=== PATIENT | female | born 1940 | race Caucasian/White ===

== ENCOUNTER 2019-05-15 11:34 | Emergency (ER) | payer MEDICARE, OTHER, SELFPAY ==
[2019-05-15 11:36] VITALS: BP 161/86; PULSE 83; RESP 16; TEMP 36.8; O2SAT 97; BMI 27.1
--- NOTE | 2019-05-15 12:20 | CT_ITS ---
STUDY: CT ABDOMEN AND PELVIS WITHOUT CONTRAST REASON FOR EXAM: Female, 78 years old. Right flank pain, hematuria, recurrent UTI x 3 months. No prior surgery.. RADIATION DOSAGE (If Supplied By Facility): CTDIvol = ( 19.58 ) mGy, DLP = ( 900.20 ) mGycm TECHNIQUE: Transaxial images were obtained from the dome of the diaphragm to the symphysis pubis without oral contrast, and without intravenous contrast. Sagittal and coronal images were reconstructed. Individualized dose optimization techniques were used for this CT. COMPARISON: None. FINDINGS: The visualized lung bases are unremarkable. The visualized portions of the heart are within normal limits. Normal liver. Normal gallbladder and extrahepatic biliary system. Normal spleen. Normal pancreas. Normal bilateral adrenal glands. Normal right kidney. Normal left kidney. Normal visualized stomach. Normal small intestine. There are multiple colonic diverticula consistent with diverticulosis. The appendix is visualized and appears normal. There is diffuse atherosclerotic calcification of the abdominal aorta, without a demonstrated aneurysm. Normal inferior vena cava. Normal retroperitoneum. Normal urinary bladder. There is a calcification at the fundus of the uterus, likely secondary to a small fibroid Normal abdominal wall. There are diffuse degenerative changes of the visualized lumbar spine. CT/Abdomen/Pelvis without Cont IMPRESSION: No acute intra-abdominal abnormalities. Mild liver steatosis. Mild aortoiliac atherosclerosis. Uterine fibroid. Electronically Signed: Christal Whiteside MD at 12:59 EDT Tel , Service support ,
[2019-05-15 12:35] LABS: Bacteria 0 SEEN /hpf (None Seen); Mucous, Urine 0 SEEN /hpf (<or=2+); Red Blood Cells-Urine 0 SEEN /hpf (0-5); White Blood Cells 0 SEEN /hpf (0-5)
[2019-05-15 12:37] LABS: Color, Urine Yellow (Yellow); Glucose, Dipstick Normal (Normal); Ketone-Dipstick Negative (Negative); Leukocyte Esterase-Dipstick 25 /ul (Negative); Nitrite-Dipstick Negative (Negative); Occult Blood-Urine 10 /ul (Negative); Protein-Dipstick Negative (Negative); Urine Bilirubin Dipstick Negative (Negative); Urine Clarity Clear (Clear); Urine Urobilinogen Normal (Normal)
[2019-05-15 12:37] LABS: Absolute Lymphocyte Count 2.18 X10^3/uL (0.83-4.51); Basophil# 0.06 X10^3/uL; Basophil% 0.8 % (0-1); Eosinophil# 0.27 X10^3/uL; Eosinophils% 3.4 % (0-5); Hematocrit 44.7 % (37-47); Hemoglobin 14.4 g/dL (12.0-15.0); Lymphocyte # 2.18 X10^3/ul (4.0); Lymphocyte % 27.3 % (19-41); Mean Corp Hgb Conc 32.2 g/dL (32-36); Mean Corpuscular Hgb 27.7 pg (27.0-32.0); Mean Corpuscular Volume 86.1 fL (81-99); Mean Platelet Vol. 8.9 fl (6.2-12.0); Monocyte# 0.49 X10^3/uL; Monocyte% 6.1 % (0-10); NRBC Flagged by Analyzer 0 % (0-5); Neutrophil # 4.98 X10^3/uL (2.7-7.7); Neutrophil % 62.1 % (47-70); Platelet Count 267 K/mm3 (150-450); RBC Distribution Width CV 13.4 % (11.6-14.6); RBC Distribution Width SD 41.8 fl (35.1-43.9); Red Blood Count 5.19 M/mm3 (4.2-5.4)
--- NOTE | 2019-05-15 12:37 | ED.DCSUM_ITS ---
- ER Visit Summary Date of Service: 05/15/19 Chief Complaint: Dysuria and right upper quadrant pain. History of Present Illness: The patient is a 78 F who presents with dysuria and hematuria that is been getting progressively worse over the past 5 days. Patient noticed a small amount of blood in her urine. Patient states she has some pressure in the suprapubic area but also a pulling sensation in her right upper quadrant. Patient states she recently lifted her and has been having some pain in her right upper quadrant since that time. Patient is currently on Macrobid for presumptive urinary tract infections. Patient states she frequently gets urinary tract infections. Daughter states the patient has been confused at times recently. Patient denies any fevers but admits to subjective chills. Patient denies any nausea or vomiting. Patient denies any back pain. Physical Examination: Vital signs are stable. Patient is afebrile. Patient is in no acute distress. Oral mucosa is pink and moist. Neck is supple. Trachea is midline. There is no JVD noted. Heart was regular rate and rhythm. Lungs are clear and equal bilaterally. Abdomen is soft. Bowel sounds are normal. There is tenderness along the right costal margin. There is no right upper quadrant abdominal tenderness. There is some mild suprapubic tenderness. There is no rebound or guarding noted. Cranial nerves II through XII are intact. There are no focal motor or sensory deficits noted. Patient is awake, alert, and oriented x3. Patient answers questions appropriately. Test Results: CBC, basic metabolic profile, and urinalysis were obtained and were all within normal limits. CT scan of the abdomen pelvis was obtained. There is no acute abnormality noted. There is uterine fibroid noted. Emergency Department Course and Treatment: Patient was advised of her lab and CT results. Patient was instructed to continue her medications as previously prescribed. Patient was instructed to take Tylenol as needed for her right upper quadrant pain. Patient was advised that this is most likely costochondritis of the costal margin. Patient was instructed to follow-up with her primary care physician in 5 to 7 days. Patient and her family understood and were agreeable with the plan. All questions were answered. Disposition: Discharge home Impression: 1. Abdominal pain 2. Costochondritis This note was generated with [employer] software. It may contain incorrect words, spelling, and punctuation that were not noted in review of the chart prior to signing ED Disposition - Plan for ED Patient: Disposition: Home or Assisted Living Diagnosis: Lower abdominal pain of unknown etiology, Costochondritis Instructions: ABDOMINAL PAIN, Unknown Cause, (Female), CHEST WALL PAIN, Costochondritis Referrals: Jamison Saleem MD [STAFF PHYSICIAN] - 5-7 Days
[2019-05-15 12:44] LABS: Squamous Epithelial Cells - UA 0-5 SEEN /hpf (5-10)
[2019-05-15 12:51] LABS: Anion Gap 2 (5-15); BUN 13 mg/dL (7-18); BUN/Creat Ratio 13.7 RATIO (10-20); Calcium,Total 9.3 mg/dL (8.5-10.1); Chloride 105 mmol/L (98-107); Creatinine, Serum 0.95 mg/dL (0.55-1.02); EST Glomerular Filtration Rate 61 mL/min (>60); Est Glom Filt Rate - Afr Amer 74 mL/min (>60); Estimated Creatinine Clearance 48.23 ml/min; Glucose 95 mg/dL (74-106); Lipase 77 U/L (73-393); Potassium 4.3 mmol/L (3.5-5.1); Sodium Level 139 mmol/L (136-145)
[2019-05-15 13:33] VITALS: BP 155/69; PULSE 80; RESP 17; O2SAT 94
[2019-05-15 13:41] VITALS: BP 159/70; PULSE 85; RESP 16; O2SAT 96
== END 2019-05-15 13:43 | disposition home or self-care (01) ==
PROVIDERS: Emergency Provider Emergency Medicine; Family Provider Family Medicine; PCP Family Medicine
DX: R10.11 Right upper quadrant pain (principal); M94.0 Chondrocostal junction syndrome [Tietze]; D25.9 Leiomyoma of uterus, unspecified; N39.0 Urinary tract infection, site not specified; R31.9 Hematuria, unspecified; R51 Headache
CPT/HCPCS: 74176; 80048; 81001; 83690; 85025; 99283; A4216

== ENCOUNTER 2019-07-02 14:25 | Emergency (ER) | payer MEDICARE, OTHER, SELFPAY ==
[2019-07-02 14:26] VITALS: BP 211/81; PULSE 73; RESP 16; TEMP 36.3; O2SAT 97; BMI 34.4
--- NOTE | 2019-07-02 15:07 | MRI_ITS ---
STUDY: MRI BRAIN WITHOUT CONTRAST REASON FOR EXAM: Female, 78 years old. Headache and visual disturbance TECHNIQUE: Study was limited due to patient becoming claustrophobia during the exam.. COMPARISON: None. FINDINGS: Examination was limited consisting of sagittal T1 images and diffusion weighted imaging sequences in the axial projection due to patient claustrophobia. There does appear to be mild age-appropriate cerebral atrophy. There is no evidence for acute infarct . There is no mass or evidence for obstructive hydrocephalus MRI/Brain without Contrast IMPRESSION: Limited study of the brain without evidence for acute infarct, mass or obstructive hydrocephalus Electronically Signed: Epifanio Callaway MD at 19:12 EST , Service support ,
--- NOTE | 2019-07-02 15:08 | EKG12_ITS ---
Test Reason : HTN/PALPS Blood Pressure : / mmHG Vent. Rate : 077 BPM Atrial Rate : 077 BPM P-R Int : 140 ms QRS Dur : 088 ms QT Int : 412 ms P-R-T Axes : 040 -39 014 degrees QTc Int : 466 ms Normal sinus rhythm Left axis deviation Minimal voltage criteria for LVH, may be normal variant Abnormal ECG Confirmed by VENICE MACKAY, DAVE ([id number]), digital editor SUSY WINTER ([id number]) on 07/06/2019 1:50:53 PM Referred By: BHARATI/LYNN Confirmed By:DAVE MILLARD MD
--- NOTE | 2019-07-02 15:13 | ED.VIS.GEN ---
History of Present Illness Chief Complaint: Hypertension Detail of Chief Complaint: By ocular blurred vision, scintillating scotoma, headache trouble speech Informant: Patient, Family Onset: Weeks Context: Sudden Onset Timing: Intermittent Quality: Varies Location: Headache, ocular and speech Current Severity: Presently absent Maximum Severity: Mild Worsened by: Possibly elevated blood pressure Relieved by: Nothing Associated Symptoms: Read HPI Narrative: Patient is a 78-year-old woman who [place] because of elevated blood pressure of 221 systolic. She was seen by her primary care provider 1 month ago and was told her blood pressure was normal. She is presently on no medication. She reports of the past 3 weeks she has had episodes of difficulty with speech and one episode of trouble breathing and inability to talk. Today while at [employer] office she had elevated blood pressure 196 initially. She then developed by ocular blurred vision. The blurred vision resolved. She then developed headache with what since it is described as scintillating scotoma. The head pain was frontal and bitemporal with unusual sensation in patient's neck. Blood pressure at that time was 221. She had no other symptoms. Patient states after arrival in the emergency department she developed palpitations. She felt like her heart was flip flopping in her chest. She had no associated symptoms or any return of headache, visual disturbance or problems with speech. She was seen news [facility] because of postmenopausal bleeding. A polyp was noted and excised. Endometrial biopsy was obtained as well. She denies fever, chills or night sweats. Denies weight gain or weight loss. Denies bone pain. Prior similar symptoms: No Recent Illness/Hospitalization: No - Past Medical History (1) No significant past medical history Status: Acute Past Medical History - Allergies and Home Meds Allergies/Adverse Reactions: Allergies Iodinated Contrast Media [CONTRASTS] Allergy (Verified 07/02/19 14:29) Other nitrofurantoin [From Macrodantin] Allergy (Verified 07/02/19 14:29) Hives Penicillins Allergy (Verified 07/02/19 14:29) Unknown Primary Care Physician: Tony Gonzáles MD [Primary Care Provider] - Past Medical History: None Surgical History: - - Scribed in [facility] Lives: Spouse/ Significant Other Smoking Status: Never smoker Alcohol: None Drugs: None Review of Systems General: Denies: Chills, Fever, Sweats Eyes: Reports: Visual changes - bilaterally, Blurred Vision - bilaterally, - - Scintillating scotoma. Denies: Diplopia ENT: Denies: Rhinorrhea, Sore throat Cardiovascular: Denies: Chest pain, Palpitations Respiratory: Denies: Dyspnea, Cough, Dyspnea on exertion Gastrointestinal: Denies: Abdominal pain, Nausea, Vomiting, Diarrhea, Melena, Hematochezia Genitourinary: Denies: Dysuria, Hematuria, Frequency Musculoskeletal: Denies: Back pain, Extremity Pain Skin: Denies: Rash, Wounds Neurological: Reports: Headache - Described in HPI Psych: Reports: - - Should not is the caregiver for her . He is not doing well. She feels slightly stressed and has had insomnia.. Denies: Depression, Anxiety Physical Exam Vital Signs/Narrative: Vital Signs Temp Pulse Resp BP Pulse Ox 07/02/19 14:26 97.4 F L 73 16 211/81 H 97 Inital Vital Signs reviewed: Yes General: Well nourished, Well developed, No Acute Distress Head: Normocephalic, Atraumatic Eyes: Perrl, EOMI, - - Scopic exam reveals normal cup-to-disc ratio. There is no papilledema. There is no evidence of hemorrhage.. Negative for: Pale conjunctiva, Scleral icterus ENT: Moist mucous membranes, No rhinorrhea Neck: Supple, Nontender, No lymphadenopathy, No JVD Cardiovascular: Regular rate, Regular rhythm, No murmurs Respiratory: No distress, CTA bilaterally, Chest nontender Abdomen: Soft, Nontender, Nondistended, Normal bowel sounds Back: Nontender, Normal Inspection Extremities: Nontender, No edema Skin: Normal color, No rash Neurological: Alert, Oriented x3, Cranial nerves II-XII grossly intact, Normal Strength, Normal Sensation, Normal DTR - There is no clonus or Babinski sign., Normal Gait, - - Jessie testing was normal. Psychological: Normal affect, Normal Mood Diagnostic/Tx/Re-eval Impressions Brain MRI 07/02/19 15:07 IMPRESSION: Limited study of the brain without evidence for acute infarct, mass or obstructive hydrocephalus Electronically Signed: Epifanio Callaway MD at 19:12 EST , Service support , 07/02/19 15:07 Brain without Contrast [MRI] Stat Laboratory Results 07/02/19 07/02/19 15:13 15:13 WBC 6.6 RBC 4.96 Hgb 13.9 Hct 42.0 MCV 84.7 MCH 28.0 MCHC 33.1 RDW Std Deviation 42.5 RDW Coeff of Holden 13.7 Plt Count 228 MPV 9.1 Immature Gran % (Auto) 0.200 Neut % (Auto) 59.1 Lymph % (Auto) 30.5 Mclean % (Auto) 6.1 Eos % (Auto) 3.2 Baso % (Auto) 0.9 Absolute Neuts (auto) 3.9 Absolute Lymphs (auto) 2.01 Nucleated RBC % 0 ESR 10 Sodium 141 Potassium 3.7 Chloride 103 Carbon Dioxide 30.0 Anion Gap 8 BUN 11 Creatinine 0.82 Estim Creat Clear Calc 55.87 Est GFR (MDRD) Af Amer 87 Est GFR (MDRD) Non-Af 72 BUN/Creatinine Ratio 13.4 Glucose 105 Calcium 8.8 C-React Prot Ext Range < 2.90 Inflammatory markers are normal which would rule out vasculitis. MRI reveals no evidence of stroke. I was informed at 2044 the patient and family are upset because she is a primary care provider of her . I was informed that she removed her IV. I did not an opportunity to talk to her because I have cared for 3 critical patients that require transfer. They were made aware of this by multiple nurses. - Medical Decision Making Evaluate patient's complaint of headache and visual disturbance CT was ordered however per the AUC MRI was recommended and was ordered. CBC was obtained to assess for white count and H&H. BMP to assess kidney function prior to administration of contrast. ESR and CRP to evaluate for inflammatory process. Differential includes migraine, stuttering TIA, malignancy or vasculitis. ED Disposition - Plan for ED Patient: Disposition: Home or Assisted Living Diagnosis: Accelerated hypertension Instructions: HYPERTENSION, New (Begin Treatment) Prescriptions: Lisinopril [Zestril] 10 mg PO DAILY #30 tab Transmission Status: Pending to [facility] Referrals: Tony Gonzáles MD [Primary Care Provider] - 3-5 Days Additional Instructions: Your prescription was electronically trans-admitted to [facility] in [place]
[2019-07-02 15:24] LABS: Absolute Lymphocyte Count 2.01 X10^3/uL (0.83-4.51); Absolute Neutrophil Count 3.9 X10^3/uL (2.0-7.7); Basophil# 0.06 X10^3/uL; Basophil% 0.9 % (0-1); Eosinophil# 0.21 X10^3/uL; Eosinophils% 3.2 % (0-5); Hemoglobin 13.9 g/dL (12.0-15.0); Lymphocyte # 2.01 X10^3/ul (4.0); Lymphocyte % 30.5 % (19-41); Mean Corp Hgb Conc 33.1 g/dL (32-36); Mean Corpuscular Volume 84.7 fL (81-99); Mean Platelet Vol. 9.1 fl (6.2-12.0); Monocyte% 6.1 % (0-10); NRBC Flagged by Analyzer 0 % (0-5); Neutrophil # 3.89 X10^3/uL (2.7-7.7); Neutrophil % 59.1 % (47-70); Platelet Count 228 K/mm3 (150-450); RBC Distribution Width CV 13.7 % (11.6-14.6); RBC Distribution Width SD 42.5 fl (35.1-43.9); Red Blood Count 4.96 M/mm3 (4.2-5.4); White Blood Count 6.6 K/mm3 (4.4-11.0)
[2019-07-02 15:43] LABS: Anion Gap 8 (5-15); BUN 11 mg/dL (7-18); BUN/Creat Ratio 13.4 RATIO (10-20); CRP < 2.90 mg/L (0.0-3.0); Calcium,Total 8.8 mg/dL (8.5-10.1); Chloride 103 mmol/L (98-107); Creatinine, Serum 0.82 mg/dL (0.55-1.02); EST Glomerular Filtration Rate 72 mL/min (>60); Est Glom Filt Rate - Afr Amer 87 mL/min (>60); Estimated Creatinine Clearance 55.87 ml/min; Glucose 105 mg/dL (74-106); Potassium 3.7 mmol/L (3.5-5.1); Sodium Level 141 mmol/L (136-145)
[2019-07-02 15:55] LABS: Erythrocyte Sedimentation Rate 10 mm/hr (0-30)
[2019-07-02 16:31] VITALS: BP 155/129; PULSE 79
[2019-07-02] MEDS: Lisinopril 10 MG Tablet PO (21:07)
[2019-07-02 21:08] VITALS: BP 199/110; RESP 18; O2SAT 98
--- NOTE | 2019-07-02 21:09 | ED.RN ---
2039 pt refusing to wait family raising voice and stating her is dying and she would like to get home to be there before he takes his last breath. rn discussed the delay from the provider being busy and she updated the doctor to review the patient chart. daughter momo expressing she wants to go and has been here for 7 hours and that if her mothers mri was critical she would have been updated. Dr. vargas made aware. pt and family refusing to stay and wanting iv out and to get dressed. Concerned if they leave that insurance will not pay. will wait to talk to registration if not covered will wait for discharge paperwork.
== END 2019-07-02 21:12 | disposition home or self-care (01) ==
PROVIDERS: Emergency Provider Emergency Medicine; Family Provider Family Medicine; PCP Family Medicine
DX: I10 Essential (primary) hypertension (principal); R00.2 Palpitations; N95.0 Postmenopausal bleeding; Z79.899 Other long term (current) drug therapy; Z88.0 Allergy status to penicillin; Z88.1 Allergy status to other antibiotic agents; Z88.8 Allergy status to other drugs, medicaments and biological substances
CPT/HCPCS: 70551; 70553; 80048; 85025; 85652; 86140; 93005; 99282; A4216

== ENCOUNTER 2019-08-19 07:55 | Day surgery (SDC) | payer MEDICARE, OTHER, SELFPAY ==
--- NOTE | 2019-08-16 16:23 | PCM.HP.BLA ---
History and Physical Date of Admission: 08/19/19 Sujata Moon Physician DOCTOR OF CHIROPRACTIC H&P Signed Encounter Date: 08/13/2019 Expand All Collapse All Hide copied text Cole for details Nica Narayan is a 79 year old female who presents for preop visit for postmenopausal bleeding endometrial polyp. Patient reports no bleeding since her endometrial biopsy. Endometrial biopsy does show an endometrial polyp present. Patient had a pelvic MRI which showed a fibroid not a ovarian mass. Patient would like to proceed with hysteroscopy dilation and curettage polypectomy using the symphion. Patient denies any chest pain, headaches, visual changes. Patient reports her blood pressure medication was recently changed is not sure what her current medication is. She will call the office and notify us. ? PAST MEDICAL HISTORY PAST MEDICAL HISTORY Diagnosis Date ? Abnormal mammogram, unspecified ? ? left breast ? Acid reflux ? ? Arthritis ? ? PAST SURGICAL HISTORY PAST SURGICAL HISTORY Procedure Laterality Date ? LIGATE FALLOPIAN TUBE ? 08/25/1976 ? LUMPECTOMY/RADIOTHERAPY DIAG MAMM/A10 ? 08/25/1975 ? left; benign ? marker clip placement ? 08/25/2003 ? right ? STEREOTACTIC CORE BIOPSY ? 07/18/09 ? left breast ? FAMILY HISTORY FAMILY HISTORY Problem Relation Age of Onset ? Coronary Artery Disease Father ? ? Heart Father ? ? angina ? Diabetes Mother ? ? Cancer Mother ? ? liver ? Heart Mother ? ? Cancer Sister ? ? leukemia ? Colon Cancer Sister ? ? Cancer Brother ? ? skin ? SOCIAL HISTORY Social History ? Tobacco Use ? Smoking status: Never Smoker ? Smokeless tobacco: Never Used Substance Use Topics ? Alcohol use: No ? Drug use: No ? CURRENT MEDICATIONS Current Outpatient Medications Medication Sig ? ibuprofen (ADVIL ORAL) Take by mouth. ? omeprazole(PRILOSEC 20 MG CAP) Take one(1) capsule daily. ? lisinopril (ZESTRIL, PRINIVIL) 10 mg tablet ? INDAPOMIDE 1.25mg daily ? No current facility-administered medications for this visit. ? Allergies As of Date: 08/13/2019 Allergen Noted Reaction DEFINITY [PERFLUTREN LIPID MICROS*07/02/2019 Other: See Comments MACRODANTIN [NITROFURANTOIN MACRO*07/04/2009 Mental Status Change PENICILLINS 07/04/2009 ? Fully Assessed 08/13/2019 ? ? REVIEW OF SYSTEMS Abdomen: no pain Bladder: no dysuria.. Expanded ROS: GENERAL: Negative for fever Allergies and current medication updated:Yes ? EXAM: BP 144/78 Ht 5' 5.748 (1.67m) Wt 217 lb (98.4kg) BMI 35.29 kg/(m^2). ? GENERAL: pleasant, female in no apparent distress HEENT: Normocephalic and atraumatic NECK: full range of motion DERMATOLOGY: Normal, without lesions, non-icteric and non-hirsute NEURO: alert and oriented x3,exam grossly non-focal EXTREMITIES: normal ? ASSESSMENT AND PLAN: Encounter Diagnosis ? ? ICD-10-CM ? 1. PMB (postmenopausal bleeding) N95.0 ? 2. Endometrial polyp N84.0 ? ? 3. Pt has been counseled on risks/benefits and alternatives of surgery including but not limited to anesthesia, bleeding, infection, injury to pelvic structures including bowel, bladder, and vessels. Pt wishes to proceed with surgery at this time. ? 4. Pt to call in about new change with BP meds. ? ? Sujata Dumont MD ?4:53 PM Office Visit on 08/13/2019
[2019-08-19] VITALS (7 sets, daily range): BP systolic 120–141; BP diastolic 59–91; PULSE 58–71; RESP 16–18; TEMP 36.3–36.6; O2SAT 94–95; BMI 33.7
[2019-08-19 08:20] LABS: Hematocrit 41.9 % (37-47); Hemoglobin 14.2 g/dL (12.0-15.0); Mean Corp Hgb Conc 33.9 g/dL (32-36); Mean Corpuscular Hgb 28.7 pg (27.0-32.0); Mean Corpuscular Volume 84.6 fL (81-99); Platelet Count 218 K/mm3 (150-450); RBC Distribution Width CV 14.1 % (11.6-14.6); RBC Distribution Width SD 42.5 fl (35.1-43.9); Red Blood Count 4.95 M/mm3 (4.2-5.4); White Blood Count 7.5 K/mm3 (4.4-11.0)
[2019-08-19] MEDS: Lactated Ringers 1,000 ML 100 ML IV (08:25)
[2019-08-19 08:41] LABS: Anion Gap 5 (5-15); BUN 15 mg/dL (7-18); Calcium,Total 9.3 mg/dL (8.5-10.1); Chloride 105 mmol/L (98-107); Creatinine, Serum 0.94 mg/dL (0.55-1.02); EST Glomerular Filtration Rate 61 mL/min (>60); Est Glom Filt Rate - Afr Amer 74 mL/min (>60); Estimated Creatinine Clearance 47.97 ml/min; Glucose 118 mg/dL (74-106); Potassium 3.7 mmol/L (3.5-5.1); Sodium Level 141 mmol/L (136-145)
[2019-08-19] MEDS: Pantoprazole Sodium 40 MG Tablet PO (08:55)
--- NOTE | 2019-08-19 10:00 | EMB_PTH ---
PATIENT: SOURAV TAM LOC: [facility] [place] U#:[id number] AGE/SX: 79/F ROOM: RE08/19/[address]: Dr. Sujata Dumont, MDDOB: 1940 BED: DIS: 08/19/2019 SPEC #: [id number] RECD: 08/19/19 12:17 STATUS: EKTA MILAGROS #: [id number] SERENITY: 08/19/19 10:[address]: Sujata Dumont DEPT: SURGICAL PATHOLOGY RECD BY: Larry rPoctor ENTERED: 08/19/19 13:19 SP TYPE: ENDOM BX/C OTHR DR: Dr. Tony Gonzáles MD Tissues: Endometrium, NOS Procedures: Surgery Specimen Level IV HEADER OPERATION: Hysteroscopy, D & C Symphion, polypectomy, myomectomy PRE-OP DIAGNOSIS: Postmenopausal bleeding, endometrial polyp TISSUE SUBMITTED: Endometrial curettings, polyp, fibroid MICROSCOPIC DIAGNOSIS Endometrial polyp, fibroid and curettings: Polypoid fragments of endometrium with simple hyperplasia and mild cytologic atypia. Fragments of myometrium suggestive of adenomyosis. AM:bhavik 08/20/19 MICROSCOPIC DESCRIPTION Slides are reviewed. GROSS DESCRIPTION Received in fixative is one container labeled with the patient's name and designated endometrial curettings, polyp and fibroid. The specimen consists of multiple irregular fragments of sutton-pink soft tissue that in aggregate measure 4.5 x 3 x 0.4 cm. The specimen is submitted in its entirety in two cassettes. / AM:bhavik 08/19/19 TC:? CPT: 64351
--- NOTE | 2019-08-19 11:45 | PCM.OPRPT ---
Report of Operation Date of Procedure: 08/19/19 Pre-Operative Diagnosis: PMB, endometrial polyp Post-Operative Diagnosis: same, submucosal fibroid Surgery/Procedure Performed:: Hysteroscopy, D&C, Polypectomy, Myomectomy Description of Surgical Findings:: Large endometrial polyp appreciated. Bilateral tubal ostia present. Endometrium atrphic appearing. submucosal fibroid noted on right lateral aspect Type of Anesthesia:: MAC Specimen's removed: endometrial polyp, Endocervical curettings, fiboid Drains: none Estimated Blood Loss (mL): minimal Fluids Replaced: 900 Description of Procedure: Informed consent was obtained the patient was taken the operating room she was placed in supine position. She was given anesthesia. She was then placed in the [facility] where she was prepped and draped in the normal sterile fashion. Bladder drained approximately 30 cc of clear yellow urine expelled. At this time the weighted speculum was placed in the posterior fornix of vagina. Single-tooth tenaculum was used to gently grasp the anterior lip the cervix. At this time the uterine cavity was sounded to approximately 8 cm. Gentle dilatation was performed once adequate dilatation of the cervix was achieved the hysteroscope using normal saline as a distention medium was placed. Endometrial polyp taking up the entire cavity as well as a submucosal fibroid coming off the right lateral aspect.. Tubal ostia visualized. Symphion device was used for resection of the polyp and then removal of the fibroid. The fibroid was approximately 50% removed. There was a lot of fluid leaking from the cervical os down to the bag and onto the floor. fluid deficit was minimal. Only approximately 50% of the fibroid was able to be removed. Endometrial polyp, endometrial curettings and fibroid will be sent to pathology for evaluation. Procedure was deemed complete successful there are no complications. Anticipated normal postoperative course. Instrument lap count correct ?2. Vaginal Sweep was negative. Grafts/Implants Used: none - Complications none - Admit VTE Documentation VTE Present on Admission: Yes VTE Mechan Device Prophylaxis: SCD's VTE Pharm Prophylaxis ordered?: No
--- NOTE | 2019-08-19 11:51 | DCINST_ITS ---
Discharge Diet: No Restrictions Discharge Activity: Return to Normal Activity, May Shower, May Take a Tub Bath - in 2 weeks. Allergies/Adverse Reactions: Allergies Iodinated Contrast Media [CONTRASTS] Allergy (Verified 08/16/19 08:32) Other nitrofurantoin [From Macrodantin] Allergy (Verified 08/16/19 08:32) Hives Penicillins Allergy (Verified 08/16/19 08:32) Unknown perflutren [From Definity] Allergy (Verified 08/16/19 08:33) Other increased BP Medications to take at Discharge Ibuprofen [Advil] 200 mg PO DAILY PRN PRN 07/02/19 Indapamide 1.25 mg PO DAILY 08/16/19 Omeprazole 40 mg PO DAILY 08/16/19 Primary Care Physician: Tony Gonzáles MD [Primary Care Provider] - Test Results: Test results from this visit will be discussed in further detail at your follow- up appointment, if applicable.
== END 2019-08-19 12:36 | disposition home or self-care (01) ==
LOC: SDC 07:55 → AC 07:57
PROVIDERS: Family Provider Family Medicine; PCP Family Medicine; Referring Provider Obstetrics & Gynecology; Visit Provider Obstetrics & Gynecology
PROC: 0UB98ZZ Excision of Uterus, Via Natural or Artificial Opening Endoscopic (ICD-10-PCS; CPT 58558; principal; 2019-08-19 09:45)
DX: D25.0 Submucous leiomyoma of uterus (principal); N95.0 Postmenopausal bleeding; I10 Essential (primary) hypertension; M19.90 Unspecified osteoarthritis, unspecified site; J45.909 Unspecified asthma, uncomplicated; K21.9 Gastro-esophageal reflux disease without esophagitis; Z79.899 Other long term (current) drug therapy; Z88.0 Allergy status to penicillin; Z88.1 Allergy status to other antibiotic agents; Z85.828 Personal history of other malignant neoplasm of skin; Z87.440 Personal history of urinary (tract) infections
CPT/HCPCS: 58558; 36415; 80048; 85027; 88305; J7120; J2405

== ENCOUNTER 2019-09-30 05:12 | Day surgery (SDC) | payer MEDICARE, OTHER, SELFPAY ==
[2019-08-19 08:16] VITALS: BMI 33.7
--- NOTE | 2019-09-17 09:46 | HP.PCM_ITS ---
History and Physical Date of Admission: 09/30/19 Sujata Moon Physician EXAMINATION SUPERVISOR H&P Signed Encounter Date: 09/17/2019 Expand All Collapse All Hide copied text Cole for details Nica Narayan is a 79 year old female who presents for discussion regarding surgical intervention for Simple hyperplasia with atypia. Originally patient was content taking progesterone on a daily basis and plan would be to have 2 negative endometrial biopsy samples. Patient reports since starting the progesterone she has had some skin irritation. After much thought patient reports that she does not want to take hormonal therapy at this time. Patient would like to proceed with surgical intervention with a hysterectomy, bilateral salpingo-oophorectomy. ? ? PAST MEDICAL HISTORY PAST MEDICAL HISTORY Diagnosis Date ? Abnormal mammogram, unspecified ? ? left breast ? Acid reflux ? ? Arthritis ? ? PAST SURGICAL HISTORY PAST SURGICAL HISTORY Procedure Laterality Date ? LIGATE FALLOPIAN TUBE ? 08/25/1976 ? LUMPECTOMY/RADIOTHERAPY DIAG MAMM/A10 ? 08/25/1975 ? left; benign ? marker clip placement ? 08/25/2003 ? right ? STEREOTACTIC CORE BIOPSY ? 07/18/09 ? left breast ? FAMILY HISTORY FAMILY HISTORY Problem Relation Age of Onset ? Coronary Artery Disease Father ? ? Heart Father ? ? angina ? Diabetes Mother ? ? Cancer Mother ? ? liver ? Heart Mother ? ? Cancer Sister ? ? leukemia ? Colon Cancer Sister ? ? Cancer Brother ? ? skin ? SOCIAL HISTORY Social History ? Tobacco Use ? Smoking status: Never Smoker ? Smokeless tobacco: Never Used Substance Use Topics ? Alcohol use: No ? Drug use: No ? CURRENT MEDICATIONS Current Outpatient Medications Medication Sig ? indapamide (LOZOL) 1.25 mg tablet Take 1.25 mg by mouth once daily. ? medroxyPROGESTERone (PROVERA, CYCRIN) 10 mg tablet Take 1 tablet by mouth once daily. (Patient not taking: Reported on 09/17/2019 ) ? No current facility-administered medications for this visit. ? Allergies As of Date: 09/17/2019 Allergen Noted Reaction DEFINITY [PERFLUTREN LIPID MICROS*07/02/2019 Other: See Comments MACRODANTIN [NITROFURANTOIN MACRO*07/04/2009 Mental Status Change PENICILLINS 07/04/2009 ? Fully Assessed 09/17/2019 ? ? REVIEW OF SYSTEMS Abdomen: no pain Bladder: no dysuria .. Expanded ROS: GENERAL: No weight loss, malaise or fevers Allergies and current medication updated:Yes ? EXAM: BP 116/78 Ht 5' 7 (1.70m) Wt 218 lb (98.9kg) BMI 34.14 kg/(m^2). ? GENERAL: pleasant, female in no apparent distress HEENT: Normocephalic and atraumatic NECK: full range of motion DERMATOLOGY: Normal, without lesions, non-icteric and non-hirsute BREAST: deferred ABDOMEN: soft, non-tender and no masses PELVIC: external genitalia normal, normal Bartholin's glands, urethra, Choteau's glands, no vulvar lesions, good vaginal support, normal appearing perineal body and perianal region BIMANUAL: uterus normal size, shape and consistency, no adnexal masses and non- tender NEURO: alert and oriented x3,exam grossly non-focal EXTREMITIES: normal ? ASSESSMENT AND PLAN: Encounter Diagnosis ? ? ICD-10-CM ? 1. Endometrial hyperplasia with atypia N85.02 ? 2. Ovarian cyst, complex N83.299 ? 3. Normal CA125 of 21 4.. Patient declining further hormonal treatment at this time. Patient would like definitive therapy with a hysterectomy and bilateral salpingo-oophorectomy. 5. Pt has been counseled on risks/benefits and alternatives of surgery including but not limited to anesthesia, bleeding, infection, injury to pelvic structures including bowel, bladder, ureters and vessels. Pt wishes to proceed with surgery at this time. 6. Consent signed and ERAS protocol reviewed. ? Sujata Dumont MD ?
[2019-09-30] VITALS (15 sets, daily range): BP systolic 79–136; BP diastolic 43–92; PULSE 46–71; RESP 16–18; TEMP 36.1–37.2; O2SAT 93–99; BMI 33.8
[2019-09-30] MEDS: Lactated Ringers 1,000 ML 40 ML IV ×2 (06:01→10:21)
[2019-09-30] MEDS: Magnesium Sulfate 4gm/100mL 4 GM/100 ML IV.SOLN. IV (06:01)
[2019-09-30] MEDS: Celecoxib 200 MG Capsule 400 MG PO (06:01)
[2019-09-30 06:02] LABS: Hematocrit 41.7 % (37-47); Hemoglobin 13.8 g/dL (12.0-15.0); Mean Corp Hgb Conc 33.1 g/dL (32-36); Mean Corpuscular Hgb 27.5 pg (27.0-32.0); Mean Corpuscular Volume 83.2 fL (81-99); Mean Platelet Vol. 8.9 fl (6.2-12.0); Platelet Count 248 K/mm3 (150-450); RBC Distribution Width CV 13.8 % (11.6-14.6); RBC Distribution Width SD 41.9 fl (35.1-43.9); Red Blood Count 5.01 M/mm3 (4.2-5.4); White Blood Count 6.8 K/mm3 (4.4-11.0)
[2019-09-30] MEDS: Acetaminophen 500 MG Tablet 1000 MG PO ×4 (06:02→23:05)
[2019-09-30] MEDS: Gabapentin 600 MG Tablet PO (06:03)
[2019-09-30] MEDS: Phenazopyridine 95 MG Tablet 190 MG PO (06:03)
[2019-09-30] MEDS: dexAMETHasone 10 MG/ML Vial 8 MG IV (06:03)
[2019-09-30] MEDS: Enoxaparin 40 MG/0.4 ML Syringe SC (06:04)
[2019-09-30] MEDS: Scopolamine 1mg/72hr Patch 1 PATCH TRANSDERM. (06:05)
[2019-09-30 06:26] LABS: Anion Gap 4 (5-15); BUN 16 mg/dL (7-18); BUN/Creat Ratio 16.7 RATIO (10-20); Calcium,Total 9.2 mg/dL (8.5-10.1); Chloride 102 mmol/L (98-107); Creatinine, Serum 0.96 mg/dL (0.55-1.02); EST Glomerular Filtration Rate 60 mL/min (>60); Est Glom Filt Rate - Afr Amer 73 mL/min (>60); Estimated Creatinine Clearance 46.97 ml/min; Glucose 78 mg/dL (74-106); Potassium 3.5 mmol/L (3.5-5.1); Sodium Level 138 mmol/L (136-145)
[2019-09-30 06:50] LABS: Bedside Glucose 102 mg/dL (70-110)
[2019-09-30] MEDS: Cefazolin 2 GM in 0.9% Normal Saline 100 ML IV (07:19)
--- NOTE | 2019-09-30 07:30 | HYST_PTH ---
PATIENT: SOURAV TAM LOC: [facility] – [place] U#:[id number] AGE/SX: 79/F ROOM: RE09/30/[address]: Dr. Sujata Dumont, MDDOB: 1940 BED: DIS: 10/01/2019 SPEC #: [id number] RECD: 09/30/19 09:33 STATUS: EKTA MILAGROS #: [id number] SERENITY: 09/30/19 07:[address]: Sujata Dumont DEPT: SURGICAL PATHOLOGY RECD BY: Larry Proctor ENTERED: 09/30/19 11:05 SP TYPE: HYSTERECT OTHR DR: Dr. Tony Gonzáles MD Tissues: Uterus, NOS Procedures: Surgery Specimen Level V HEADER OPERATION: ERAS, hysterectomy, TLH, salpingo-oophorectomy, cysto PRE-OP DIAGNOSIS: Endometrial hyperplasia with atypia N85.02; ovarian cyst N83.299 TISSUE SUBMITTED: Uterus, bilateral fallopian tubes and ovaries MICROSCOPIC DIAGNOSIS Uterus, bilateral fallopian tubes and ovaries, hysterectomy and bilateral salpingo-oophorectomy: Cervix - chronic cystic cervicitis. Endometrium - simple endometrial hyperplasia without atypia. Myometrium - intramural and subserosal leiomyoma (largest measuring 3.5 cm in greatest dimension). - Diffuse adenomyosis. Bilateral fallopian tubes - no pathologic diagnosis. Bilateral ovaries - no pathologic diagnosis. Right paratubal cysts. DWAIN:bhavik 10/01/19 COMMENT Please make reference to previous specimen ([id number]) endometrial polyp, fibroid and curettings with diagnosis of polypoid fragments of endometrium with simple hyperplasia and mild cytologic atypia and fragments of myometrium suggestive of adenomyosis. Case has been reviewed in consultation with Dr. Waddell who concurs with the above diagnosis. IDC:AM MICROSCOPIC DESCRIPTION Slides are reviewed. GROSS DESCRIPTION Received in fixative is one container labeled with the patient's name and designated uterus. The specimen consists of a uterus with attached cervix, right and left fallopian tubes and ovaries. The uterus with cervix measures 8.5 x 6 x 3 cm and weighs 75 gm. The ectocervix is unremarkable. The cervical os is oval in contour. The endocervical canal measures 3.5 cm in length and is grossly unremarkable. The triangular endometrial cavity measures 3 x 2.5 cm. The velvety, light sutton endometrium measures up to 0.2 cm in thickness. The myometrium measures 1.3 cm in average thickness and contains multiple spherical, rubbery nodules ranging in size from 0.5 to 1 cm. The nodules are intramural, submucosal and subserosal in location. A similar large, firm, rubbery nodule measuring 3.5 cm is attached to the serosal surface. Cut sections of the nodules reveal rubbery, sutton-white surfaces without areas of cyst formation or necrosis. The right and left ovaries are similar in appearance. The external surfaces are crinkled and sutton-yellow in color. The right ovary measures 3.2 x 1.5 x 1 cm. Serial sections do not reveal mass lesions. The right fallopian tube measures 4 cm in length and 0.5 cm in average diameter. The fimbriated end has a normal villous appearance. Paratubal cysts averaging 0.2 cm and containing clear fluid are present. The left ovary measures 2.5 x 1.5 x 1 cm. Serial sections do not reveal mass lesions. The left fallopian tube is similar in appearance to the right tube and measures 4.5 cm in length and 0.5 cm in average diameter. No tubo-ovarian adhesions are identified in either right or left fallopian tube. The fimbriated end has a normal villous appearance. Synthetic Staple Extruder sections are submitted in ten cassettes as follows: 1 - anterior and posterior cervix (posterior cervix inked), 2-4 - anterior endometrium and adjacent myometrium, 5 & 6 - posterior endometrium and adjacent myometrium, 7 - smaller myometrial masses, 8 - large pedunculated subserosal mass, 9 - right fallopian tube and ovary, 10 - left fallopian tube and ovary. / AM:rg 09/30/19 TC:5 CPT: 95473
[2019-09-30] MEDS: Lubricating Jelly 60 GM Tube 30 GM TOPICAL (08:00)
[2019-09-30] MEDS: Bupivacaine Mpf 0.5% 30 ML VIAL (09:30)
--- NOTE | 2019-09-30 09:38 | OP.PCM_ITS ---
Report of Operation Date of Procedure: 09/30/19 Pre-Operative Diagnosis: PMB, SIMPLE HYPERPLASIA WITH ATYPIA Post-Operative Diagnosis: SAME, UTERINE FIBROID Surgery/Procedure Performed:: TLH, BSO, CYSTOSCOPY Description of Surgical Findings:: NORMAL TUBES AND OVARIES BILATERALLY. SMALL FIBROID IN RIGHT LOWER UTERINE SEGMENT. production technologist: None - JEF OLIVIER production technologist: Jef Stoddard production technologist: Jessica Rubin Type of Anesthesia:: General Anesthesiologist: Zonia Bee Special Medications: .5% MARCAINE Specimen's removed: UTERUS, CERVIX, BILATERAL FALLOPIAN TUBES, BILATERAL OVARIES Drains: WINN Estimated Blood Loss (mL): 150 Fluids Replaced: 1800 Description of Procedure: Patient take to OR and prepped and draped in usual sterile fashion in dorsal lithotomy position with her arms tucked in a neurologically safe and neutral position. The uterus sounded to 10 cm. The Wedding Cake Designer uterine manipulator was sutured into place at 12:00 position and winn were placed. Attention was turned to the abdomen. All port sites were infiltrated with .5%marcaine before the incisions were made. The anterior abdominal wall was tented up with towel clamps and using a direct entry approach a 5 mm intraumbilical port was placed. Intraperitoneal placement was confirmed with the laparoscope and the pneumoperitoneum was created. The patient was placed in Trendelenburg and 5 mm right and left lower quadrant ports were placed under direct visualization. Air seal rapid insufflator was used. The bowel was swept away. Ureters were visualized. Ovaries appeared normal. The IP ligaments were coagulated and ligated with Ligasure. The round ligaments were divided. The anterior peritoneum was dissected down to create the bladder flap with blunt dissection and the LigaSure. The uterine arteries were isolated, clamped, sealed and cut. There was minimal back bleeding from the uterus. Straight bites on uterine artieries performed to drop them off the cuff. The manipulator was used as guide to create colpotomy using monopolar tip of ligasure. once specimen was removed attention was turned to vaginal portion. The specimen was handed off. The cuff was closed with interrupted 0-vicryl figure of 8 sutures. Cystoscopy was performed bilateral ureters were visualized with good efflux. lasix given intraop to assist with efflex. bladder was intact. winn replaced and sponge stick placed in vagina. The pneumoperitoneum was recreated and the cuff and pedicles were hemostatic. Erin was placed over cuff and pedicles. The skin incisions were closed with skin glue and 3-0 monocryl in the LLQ port site. The vaginal sweep was completed by me. Grafts/Implants Used: none Grafts/Implants Used: none - Complications none - Admit VTE Documentation VTE Present on Admission: Yes VTE Mechan Device Prophylaxis: SCD's VTE Pharm Prophylaxis ordered?: Yes
--- NOTE | 2019-09-30 10:04 | DCINST_ITS ---
Discharge Diet: No Restrictions Discharge Activity: Return to Normal Activity, May Not Drive - while taking narcotic pain medications., May Shower May resume sexual activity in: 6-8 weeks Call your doctor if your incision/area has: Continuous Slow Oozing, Sudden Increased Bleeding, Increased Pain/ Swelling, Increased Redness, Foul Smelling Discharge Call your doctor if you observe: Fever of 101 or Higher, Inability to urinate, Inability to have a bowel movement, Using more than one pad per hour Allergies/Adverse Reactions: Allergies Iodinated Contrast Media [CONTRASTS] Allergy (Verified 09/30/19 05:49) Other nitrofurantoin [From Macrodantin] Allergy (Verified 09/30/19 05:49) Hives Penicillins Allergy (Verified 09/30/19 05:49) Unknown perflutren [From Definity] Allergy (Verified 09/30/19 05:49) Other increased BP Medications to take at Discharge Ibuprofen [Advil] 200 mg PO DAILY PRN PRN 07/02/19 Indapamide 1.25 mg PO DAILY 08/16/19 Acetaminophen [Tylenol] 1,000 mg PO Q6 #60 tab 09/30/19 Docusate Sodium [Colace] 100 mg PO BID #30 cap 09/30/19 Ibuprofen [Motrin] 600 mg PO Q6H PRN PRN #60 tab 09/30/19 Oxycodone [Oxyir] 5 - 10 mg PO Q4H PRN PRN 7 Days #20 tablet 09/30/19 The following prescriptions were given: Docusate Sodium [Colace] 100 mg PO BID #30 cap Transmission Status: Pending to [facility] Ibuprofen [Motrin] 600 mg PO Q6H PRN PRN #60 tab PRN Reason: Pain Or Fever Transmission Status: Pending to [facility] Oxycodone [Oxyir] 5 - 10 mg PO Q4H PRN PRN 7 Days #20 tablet PRN Reason: Pain Score 4-10/10 Transmission Status: Sent to [facility] Acetaminophen [Tylenol] 1,000 mg PO Q6 #60 tab Transmission Status: Pending to [facility] Primary Care Physician: Tony Gonzáles MD [Primary Care Provider] - Test Results: Test results from this visit will be discussed in further detail at your follow- up appointment, if applicable.
[2019-09-30 14:48] LABS: Anion Gap 5 (5-15); BUN 16 mg/dL (7-18); BUN/Creat Ratio 15.2 RATIO (10-20); Calcium,Total 8.7 mg/dL (8.5-10.1); Chloride 104 mmol/L (98-107); Creatinine, Serum 1.05 mg/dL (0.55-1.02); EST Glomerular Filtration Rate 54 mL/min (>60); Est Glom Filt Rate - Afr Amer 65 mL/min (>60); Estimated Creatinine Clearance 42.94 ml/min; Glucose 157 mg/dL (74-106); Potassium 3.7 mmol/L (3.5-5.1); Sodium Level 137 mmol/L (136-145)
[2019-09-30] MEDS: Ketorolac 15 MG/ML Vial IV ×2 (17:54→23:05)
[2019-09-30] MEDS: Lactated Ringers 1,000 ML 150 ML IV ×2 (17:57→23:56)
[2019-09-30] MEDS: Docusate Sodium 100 MG Capsule PO (23:05)
--- NOTE | 2019-09-30 23:40 | NURSING ---
walked in [place] with labor relations teacher, gait steady
[2019-10-01 03:45] VITALS: BP 125/49; PULSE 54; RESP 16; TEMP 36.8; O2SAT 94
[2019-10-01] MEDS: 0.9% Saline Lock 10 ML Syringe IV (05:49)
[2019-10-01] MEDS: Ketorolac 15 MG/ML Vial IV (05:54)
[2019-10-01] MEDS: Acetaminophen 500 MG Tablet 1000 MG PO ×2 (06:06→13:06)
[2019-10-01 07:07] LABS: Absolute Lymphocyte Count 1.14 X10^3/uL (0.83-4.51); Absolute Neutrophil Count 11.2 X10^3/uL (2.0-7.7); Basophil# 0.01 X10^3/uL; Basophil% 0.1 % (0-1); Eosinophil# 0.01 X10^3/uL; Eosinophils% 0.1 % (0-5); Hemoglobin 12.5 g/dL (12.0-15.0); Lymphocyte # 1.14 X10^3/ul (4.0); Lymphocyte % 8.9 % (19-41); Mean Corp Hgb Conc 33.8 g/dL (32-36); Mean Corpuscular Hgb 28.1 pg (27.0-32.0); Mean Corpuscular Volume 83.1 fL (81-99); Mean Platelet Vol. 9.4 fl (6.2-12.0); Monocyte% 3.1 % (0-10); NRBC Flagged by Analyzer 0 % (0-5); Neutrophil # 11.16 X10^3/uL (2.7-7.7); Neutrophil % 87.3 % (47-70); Platelet Count 250 K/mm3 (150-450); RBC Distribution Width CV 13.6 % (11.6-14.6); RBC Distribution Width SD 40.8 fl (35.1-43.9); Red Blood Count 4.45 M/mm3 (4.2-5.4); White Blood Count 12.8 K/mm3 (4.4-11.0)
[2019-10-01 07:29] LABS: Anion Gap 3 (5-15); BUN 12 mg/dL (7-18); BUN/Creat Ratio 14.8 RATIO (10-20); Calcium,Total 8.3 mg/dL (8.5-10.1); Chloride 98 mmol/L (98-107); Creatinine, Serum 0.81 mg/dL (0.55-1.02); EST Glomerular Filtration Rate 73 mL/min (>60); Est Glom Filt Rate - Afr Amer 88 mL/min (>60); Estimated Creatinine Clearance 55.66 ml/min; Glucose 142 mg/dL (74-106); Potassium 3.7 mmol/L (3.5-5.1); Sodium Level 133 mmol/L (136-145)
--- NOTE | 2019-10-01 08:01 | PN.OBGYN_ITS ---
Subjective: Patient seen at bedside, doing well. Patient reports good pain control. Scant bleeding from the vagina. Voiding without difficulty. Tolerating a regular diet. She is passing small amount of flatus at this time. Denies any chest pain, shortness of breath, dizziness. She reports when she first got up this morning she felt a little dizzy but that has since resolved. - Physical Exam Vitals/I&O's: Vital Signs Temp Pulse Resp BP Pulse Ox 98.3 F 54 L 16 125/49 H 94 10/01/19 03:45 10/01/19 03:45 10/01/19 03:45 10/01/19 03:45 10/01/19 03:45 Oxygen Flow Rate (L/min) 6 Oxygen Delivery Method Room Air Weight: 98 kg Body Mass Index (BMI) 33.8 Intake and Output for Last 24 Hours 09/29/19 09/30/19 10/01/19 23:59 23:59 23:59 Intake Total 5100.66 / 5100.66 1162.5 / 1162.5 Output Total 1145 / 1145 100 / 100 Balance 3955.66 / 3955.66 1062.5 / 1062.5 General: Alert, Oriented x3 Lungs: Clear to auscultation, Normal air movement, No rhonchi, No wheeze Cardiovascular: Regular rate, Regular Rhythm Abdomen: Bowel Sounds Present, Soft, Passing Flatus Extremities: No Calf Tenderness Laboratory Results 09/30/19 14:00: Sodium 137, Potassium 3.7, Chloride 104, Carbon Dioxide 28.0, Anion Gap 5, BUN 16, Creatinine 1.05 H, Estim Creat Clear Calc 42.94, Est GFR (MDRD) Af Amer 65, Est GFR (MDRD) Non-Af 54 L, BUN/Creatinine Ratio 15.2, Glucose 157 H, Calcium 8.7 10/01/19 06:30: Sodium 133 L, Potassium 3.7, Chloride 98, Carbon Dioxide 32.0, Anion Gap 3 L, BUN 12, Creatinine 0.81, Estim Creat Clear Calc 55.66, Est GFR (MDRD) Af Amer 88, Est GFR (MDRD) Non-Af 73, BUN/Creatinine Ratio 14.8, Glucose 142 H, Calcium 8.3 L 10/01/19 06:30: WBC 12.8 H, RBC 4.45, Hgb 12.5, Hct 37.0, MCV 83.1, MCH 28.1, MCHC 33.8, RDW Std Deviation 40.8, RDW Coeff of Holden 13.6, Plt Count 250, MPV 9.4, Immature Gran % (Auto) 0.500, Neut % (Auto) 87.3 H, Lymph % (Auto) 8.9 L, Bethel % (Auto) 3.1, Eos % (Auto) 0.1, Baso % (Auto) 0.1, Absolute Neuts (auto) 11.2 H, Absolute Lymphs (auto) 1.14, Nucleated RBC % 0 Current Medications Acetaminophen (Tylenol) 1,000 mg PO Q6 [facility] Last Admin: 10/01/19 06:06 Dose: 1,000 mg Documented by: Docusate Sodium (Colace) 100 mg PO BID [facility] Last Admin: 09/30/19 23:05 Dose: 100 mg Documented by: Sodium Chloride () 250 mls @ 15 mls/hr IV .[id number] PRN PRN Reason: Saline Flush Indapamide (Lozol) 1.25 mg PO DAILY [facility] Last Admin: 09/30/19 12:33 Dose: Not Given Documented by: Ketorolac Tromethamine (Toradol (Bkc)) 15 mg IV Q6 [facility] Stop: 10/02/19 00:01 Last Admin: 10/01/19 05:54 Dose: 15 mg Documented by: Magnesium Oxide (Mag-Ox 400) 400 mg PO DAILY PRN PRN PRN Reason: Constipation Nutritional Formula (Lactose Free) (Ensure Enlive) 120 ml PO TIDCM [facility] Ondansetron HCl (Zofran Odt) 4 mg PO Q6H PRN PRN PRN Reason: NAUSEA Oxycodone HCl (Oxyir) 5 - 10 mg PO Q4H PRN PRN PRN Reason: Pain Score 4-10/10 Sodium Chloride () 10 - 40 ml IV UD PRN PRN Reason: SALINE FLUSH Last Admin: 10/01/19 05:49 Dose: 10 ml Documented by: Medical Necessity - Tobacco Use Smoking Status: Never smoker Tobacco Use: Non-smoker Assessment/Plan All Active Problems No significant past medical history (Acute) Postop day #1 status post TLH, BSO, cystoscopy VS and Labs stable continue ambulation dc home today pain mgmt dc instructions reviewed
[2019-10-01 08:55] VITALS: BP 130/61; PULSE 58; RESP 16; TEMP 37.1; O2SAT 95
[2019-10-01] MEDS: Docusate Sodium 100 MG Capsule PO (09:14)
[2019-10-01] MEDS: Indapamide 2.5 MG Tablet 1.25 MG PO (09:16)
[2019-10-01 14:44] VITALS: O2SAT 95
== END 2019-10-01 15:43 | disposition home or self-care (01) ==
LOC: SDC 05:14 → AC 05:23 → MS3 10:01
PROVIDERS: PCP Family Medicine; Referring Provider Obstetrics & Gynecology; Visit Provider Obstetrics & Gynecology
PROC: 0UT94ZZ Resection of Uterus, Percutaneous Endoscopic Approach (ICD-10-PCS; CPT 58571; principal; 2019-09-30 07:10)
DX: D25.2 Subserosal leiomyoma of uterus (principal); D25.1 Intramural leiomyoma of uterus; N83.299 Other ovarian cyst, unspecified side; N80.0 Endometriosis of uterus; N85.01 Benign endometrial hyperplasia; N72 Inflammatory disease of cervix uteri; N83.8 Other noninflammatory disorders of ovary, fallopian tube and broad ligament; M06.9 Rheumatoid arthritis, unspecified; I10 Essential (primary) hypertension; K21.9 Gastro-esophageal reflux disease without esophagitis; Z72.0 Tobacco use; Z78.0 Asymptomatic menopausal state; Z79.899 Other long term (current) drug therapy; Z88.0 Allergy status to penicillin; Z88.1 Allergy status to other antibiotic agents; Z85.828 Personal history of other malignant neoplasm of skin
CPT/HCPCS: 58571; 36415; 80048; 82962; 85025; 85027; 86850; 86900; 86901; 88307; 94762; 99251; J7120; A4216; G0463; J1940; J2405

== ENCOUNTER → 2020-04-04 14:34 | Outpatient (CLI) | payer MEDICARE, OTHER, SELFPAY ==
[2019-09-30 12:24] VITALS: BMI 33.8
--- NOTE | 2020-04-04 14:40 | BD_ITS ---
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 COMPARISON: Comparison is made with prior study dated 01/12/2015. FINDINGS: Lumbar Spine (L1-L4): g/cm2 (1.199) / T-score (0.2) / Z-score (2.1) Findings are suggestive of normal bone density with a low fracture risk. Left Femur Total: g/cm2 (1.199) / T-score (1.5) / Z-score (3.4) Left Femoral Neck: g/cm2 (1.002) / T-score (-0.3) / Z-score (1.8) Right Femur Total: g/cm2 (1.211) / T-score (1.6) / Z-score (3.5) Right Femoral Neck: g/cm2 (1.008) / T-score (-0.2) / Z-score (1.9) The T-Scores on the most recent prior examination were: Lumbar Spine (L1-L4): There has been worsening of bone density since the previous examination. Left Femur Total: which represents an improvement of 1%. Right Femur Total: which represents an improvement of 2.3%. BD/Dexa Bone Density Study IMPRESSION: The patient is considered normal as outlined below according to World Ernesto Organization (WHO) criteria with a low fracture risk. There has been improvement of bone density since the previous examination. Reference Information: The T-score is the number of standard deviations above or below the standard which is normal for young adults at their peak bone mineral density. The World Health Organization (WHO) interprets the T-scores as follows: Above -1 Normal bone density Between -1 and -2.5 Osteopenia Equal to / or below -2.5 Osteoporosis As a practical clinical guideline, osteopenia may be graded as follows: Mild -1 through -1.5 Moderate -1.6 through -2.0 Severe -2.1 through -2.4 The Z-score is the number of standard deviations above or below age-matched controls. A Z-score of less than -1.5 would be considered abnormal. References: 1. NIH Osteoporosis and Related Bone Diseases http://www.osteo.org 2. International Society for Clinical Densitometry http://www.iscd.org 3. National Osteoporosis Foundation http://www.nof.org Electronically Signed: Gordo Burr, at 12:18 EDT , Service support ,
--- NOTE | 2020-04-04 14:56 | BI_ITS ---
MAMMOGRAPHY - BILATERAL SCREENING REASON FOR EXAM: Female, 79 years old. Routine annual screening examination. PERTINENT HISTORY: Non-contributory. Remote bilateral stereotactic breast biopsies. TECHNIQUE: Digital bilateral breast kennedy (3D mammographic acquisition) in the CC and MLO projections. 2-D mediolateral oblique (MLO) and craniocaudad (CC) views of both breasts were obtained. CAD: Full Field Digital Mammography with Computer Added Detection was performed. COMPARISON: Comparison is made with prior study dated 01/12/2015 and 05/03/2013. FINDINGS: Breast Composition: The breasts are extremely dense, which lowers the sensitivity of mammography. There are no dominant masses or suspicious calcifications. A tissue clip marker is seen in the upper medial portion of the right breast as well as in the upper deep slightly medial portion of the left breast. No other significant abnormalities are identified. There has been no significant change since the prior study. BI/SCREEN MAMM (CAD) W/KENNEDY BILAT IMPRESSION: Stable bilateral screening mammogram. Yearly follow-up mammogram recommended. (A) ASSESSMENT CATEGORY: BIRADS Category 2: Benign. A letter regarding these results will be sent to the patient by the facility within 30 days. Approximately 10% of breast cancers are not detected by mammography. A normal mammogram should not delay biopsy of a clinically suspicious abnormality. [id number] Electronically Signed: Gordo Burr, at 15:50 EDT , Service support ,
== END ==
PROVIDERS: PCP Family Medicine; Referring Provider Family Medicine; Visit Provider Family Medicine
DX: Z12.31 Encounter for screening mammogram for malignant neoplasm of breast (principal); Z78.0 Asymptomatic menopausal state
CPT/HCPCS: 77063; 77067; 77080

== ENCOUNTER → 2020-07-14 08:23 | Outpatient (CLI) | payer MEDICARE, OTHER, SELFPAY ==
[2019-09-30 12:24] VITALS: BMI 33.8
--- NOTE | 2020-07-14 08:25 | US_ITS ---
STUDY: ABDOMINAL ULTRASOUND - RIGHT UPPER QUADRANT REASON FOR VISIT: Female, 79 years old RUQ PAIN TECHNIQUE: Ultrasound evaluation of the right upper quadrant was performed with real-time and static engel-scale imaging. TECHNICAL QUALITY: Adequate. COMPARISON: 12/31/2013. FINDINGS: Liver: The liver is enlarged measures 20.4 cm. There is increased echogenicity consistent with fatty infiltration. The bile ducts are within normal limits. There is hepatic color flow. The direction of portal flow is hepatopetal. There is no demonstrated mass lesion. Gallbladder: Normal distended gallbladder. The gallbladder wall measures 3 mm. There is a negative sonographic Arroyo''s sign. There is no pericholecystic fluid. There are no gallstones. Common Bile Duct (C.B.D.): The common bile duct measures 4 mm. Pancreas: Normal size of the head, body and tail of the pancreas. There is normal echogenicity of the pancreas. There is no demonstrated pancreatic mass or cyst. Right Kidney: Normal size of the right kidney. The right kidney measures 13.2 cm x 5.4 cm x 4.6 cm. Normal renal cortex. The right cortex measures 1.9 cm. There is no demonstrated renal mass or cyst. There is no right hydronephrosis. US/Abdomen Limited IMPRESSION: Hepatomegaly and diffuse fatty infiltration of the liver. Electronically Signed: Gordo Burr, at 12:22 EST , Service support ,
== END ==
PROVIDERS: PCP Family Medicine; Referring Provider Family Medicine; Visit Provider Family Medicine
DX: R10.11 Right upper quadrant pain (principal)
CPT/HCPCS: 76705

== ENCOUNTER 2020-11-30 12:46 | Observation (INO) | payer MEDICARE, OTHER, SELFPAY ==
[2019-09-30 12:24] VITALS: BMI 33.8
[2020-11-30] VITALS (9 sets, daily range): BP systolic 126–166; BP diastolic 72–89; PULSE 65–86; RESP 16–20; TEMP 36.3–36.9; O2SAT 91–97; BMI 35.9; BMI 35.6; BMI 35.7
--- NOTE | 2020-11-30 13:06 | EKG12_ITS ---
Test Reason : Blood Pressure : / mmHG Vent. Rate : 067 BPM Atrial Rate : 067 BPM P-R Int : 174 ms QRS Dur : 090 ms QT Int : 422 ms P-R-T Axes : 007 -42 007 degrees QTc Int : 445 ms Normal sinus rhythm Left axis deviation Minimal voltage criteria for LVH, may be normal variant Abnormal ECG Confirmed by VENICE MACKAY, DAVE ([id number]), editor house organ CHAPO LUTZ ([id number]) on 12/04/2020 2:13:40 PM Referred By: NESTOR/RASHAWN Confirmed By:DAVE MILLARD MD
--- NOTE | 2020-11-30 13:07 | ED.DCSUM_ITS ---
- ER Visit Summary Date of Service: 11/30/20 Chief Complaint: [This of breath] History of Present Illness: The patient is a 80 F [presents to the emergency room with complaint of shortness of breath that started 2 weeks ago. Patient complains of exertional dyspnea and fatigue. Patient states that she easily breaks out into a cold sweat. A week ago she woke up from sleep with a severe pain in the center of her chest that she described as a burning and severe pain into the right side of her back. She is unsure how long that lasted but resolved in the night. Patient has no heart history. She does have history of hypertension. She denies recent travel or surgery. She has no history of PE or DVT. Denies fever or cough or recent illness. Denies any Covid exposures.] Physical Examination: [HEENT-PERRLA, EOMI. Cranial nerves II through XII grossly intact. TMs clear. Mucous membranes moist. No adenopathy. Cardiovascular-regular rate and rhythm without murmur or ectopy Lungs-good aeration bilaterally. No significant tachypnea or accessory muscle use noted. Patient does have some faint rales in both bases. Abdomen-normoactive bowel sounds, soft, nontender, no rebound or rigidity, no peritoneal signs. Extremities-intact ?4, normal range of motion, normal pulses, atraumatic. No edema noted of the lower extremities.] Test Results: [EKG obtained on arrival shows sinus rhythm with a ventricular rate of 67 bpm with no acute ST segment changes noted.] CBC with differential obtained showing a 7.8, hemoglobin 13.7, hematocrit 42, placed 248. Chemistries unremarkable. Troponin less than 0.015. BNP was 17. COVID-19 test was negative. Chest x-ray 1 view obtained interpreted by myself as some hyperinflation otherwise no acute disease process noted. Radiology was in agreement. Emergency Department Course and Treatment: [IV line established on arrival. Patient placed on a bus driver/monitor. Patient received 2 baby aspirin p.o.] Treatment Plan: [Admit for further work-up and evaluation of patient's shortness of breath that seems to be exertional as well as for chest pain.] Disposition: [Admit] Impression: [Exertional dyspnea Chest pain-rule out acute coronary syndrome] This note was generated with [employer] software. It may contain incorrect words, spelling, and punctuation that were not noted in review of the chart prior to signing ED Disposition - Plan for ED Patient: Referrals: Tony Gonzáles MD [Primary Care Provider] -
[2020-11-30] MEDS: Aspirin 81 MG TAB.CHEW 162 MG PO (13:20)
[2020-11-30] MEDS: 0.9% Normal Saline 1,000 ML 150 ML IV (13:20)
--- NOTE | 2020-11-30 13:30 | RAD_ITS ---
STUDY: X-RAY CHEST REASON FOR EXAM: Female, 80 years old. dyspnea TECHNIQUE: Single AP portable view of the chest. COMPARISON: 11/24/2015. FINDINGS: Cardiac silhouette unremarkable. Pulmonary vascularity unremarkable. Aorta calcified. No focal patchy airspace opacities. No pleural effusions. Coarse lung markings with mild atelectasis/scar. Upper abdomen unremarkable. Osseous structures intact with degenerative features. No pneumothorax. RAD/Chest 1 View (Portable) IMPRESSION: No focal patchy airspace opacities or effusions COPD/coarse lung markings Electronically Signed: Jamison Thomson DO at 13:44 EDT Tel , Service support ,
[2020-11-30 13:31] LABS: Absolute Lymphocyte Count 2.01 X10^3/uL (0.83-4.51); Absolute Neutrophil Count 5.1 X10^3/uL (2.0-7.7); Basophil# 0.05 X10^3/uL; Basophil% 0.6 % (0-1); Eosinophil# 0.18 X10^3/uL; Eosinophils% 2.3 % (0-5); Hematocrit 41.6 % (37-47); Hemoglobin 13.7 g/dL (12.0-15.0); Lymphocyte # 2.01 X10^3/ul (4.0); Lymphocyte % 25.7 % (19-41); Mean Corp Hgb Conc 32.9 g/dL (32-36); Mean Corpuscular Hgb 28.3 pg (27.0-32.0); Mean Platelet Vol. 9.1 fl (6.2-12.0); Monocyte# 0.43 X10^3/uL; Monocyte% 5.5 % (0-10); NRBC Flagged by Analyzer 0 % (0-5); Neutrophil # 5.13 X10^3/uL (2.7-7.7); Neutrophil % 65.6 % (47-70); Platelet Count 248 K/mm3 (150-450); RBC Distribution Width SD 43.6 fl (35.1-43.9); Red Blood Count 4.84 M/mm3 (4.2-5.4); White Blood Count 7.8 K/mm3 (4.4-11.0)
[2020-11-30 13:52] LABS: Anion Gap 3 (5-15); BUN 12 mg/dL (7-18); BUN/Creat Ratio 12.5 RATIO (10-20); Calcium,Total 9.6 mg/dL (8.5-10.1); Chloride 100 mmol/L (98-107); Creatinine, Serum 0.96 mg/dL (0.55-1.02); EST Glomerular Filtration Rate 60 mL/min (>60); Est Glom Filt Rate - Afr Amer 72 mL/min (>60); Estimated Creatinine Clearance 46.21 ml/min; Glucose 119 mg/dL (74-106); Potassium 3.3 mmol/L (3.5-5.1); Sodium Level 137 mmol/L (136-145)
[2020-11-30 13:53] LABS: BNP,B-Type NATRIURETIC PEPTIDE 17.7 pg/mL (0-100)
--- NOTE | 2020-11-30 14:05 | PCM.HP.STD ---
Problem List (1) Chest pain Status: Acute Qualifiers: Chest pain type: unspecified Qualified Code(s): R07.9 - Chest pain, unspecified (2) Exertional dyspnea Status: Acute (3) Asthma Status: Chronic Qualifiers: Asthma severity: unspecified severity Asthma persistence: unspecified Asthma complication type: unspecified Qualified Code(s): J45.909 - Unspecified asthma, uncomplicated (4) COPD (chronic obstructive pulmonary disease) Status: Suspected Qualifiers: COPD type: unspecified COPD Qualified Code(s): J44.9 - Chronic obstructive pulmonary disease, unspecified (5) Secondhand smoke exposure Status: Chronic (6) Allergic rhinitis Status: Chronic Qualifiers: Allergic rhinitis trigger: unspecified (7) Hypertension Status: Chronic Qualifiers: Hypertension type: essential hypertension Qualified Code(s): I10 - Essential (primary) hypertension (8) Hyperlipidemia Status: Chronic Qualifiers: Hyperlipidemia type: unspecified Qualified Code(s): E78.5 - Hyperlipidemia, unspecified (9) Obesity (BMI 30-39.9) Status: Chronic History of Present Illness Date of Admission: 11/30/20 Chief Complaint: Chest pain The patient is a 80 y/o F w/ PMHx: Obesity, HTN, HLD, GERD, Anxiety, Hx Skin CA, Allergic rhinitis, Asthma/Suspected underlying Chronic COPD (2nd hand tobacco exposure prolonged hx) who presents to the [facility] ED on 11/30/20 with history of at least 2 months of dyspnea with exertion especially when attempting to go up steps however it has been worsening over the last 2 weeks with associated decreased energy, diaphoresis, dyspnea with any attempted increased activity with episode the week prior of midsternal chest pain, described in the midsternal region as a burning severe sensation, 10 out of 10 radiating toward her back and right shoulder specifically awakening her with diaphoresis however it eventually resolved after she went to bed but she does not know how long as she fell asleep prior. She has denied any chest pain since. Work-up in the ED included T 97.3, heart rate 75, BP 148/83, respiratory rate 16, 96% on room air, CBC with WBC 7.8, hemoglobin 13.7, platelet 248 without marked shift, BMP with potassium 3.3, CO2 34, glucose 119, troponin less than 0.015, BNP 17.7, rapid SARS Covid antigen negative, chest x-ray with coarse lung markings/chronic COPD type changes with no acute cardiopulmonary findings otherwise, EKG was sinus rhythm with no acute evidence of ischemia. In the ED patient ministered aspirin 162 mg p.o. x1 as well as normal saline. Past Medical History Past Medical History (Chronic Problems): Chronic Problems Asthma (Chronic) Secondhand smoke exposure (Chronic) Allergic rhinitis (Chronic) Hypertension (Chronic) Hyperlipidemia (Chronic) Obesity (BMI 30-39.9) (Chronic) Allergies Iodinated Contrast Media [CONTRASTS] Allergy (Verified 11/30/20 12:47) Other nitrofurantoin [From Macrodantin] Allergy (Verified 11/30/20 12:47) Hives Penicillins Allergy (Verified 11/30/20 12:47) Unknown perflutren [From Definity] Allergy (Verified 11/30/20 12:47) Other increased BP Home Medications: Ambulatory Orders Medication Instructions Recorded Indapamide 1.25 mg PO DAILY 08/16/19 Fexofenadine HCl 180 mg PO DAILY 11/30/20 Polyethylene Glycol 3350 [Miralax] 17 gm PO DAILY 11/30/20 Rosuvastatin Calcium 5 mg PO DAILY 11/30/20 Surgical History: - - Bilateral cataract surgery, bilateral total knee replacement, hysterectomy, left breast lumpectomy. 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 Smoking Status: Never smoker - Patient was never herself a smoker however her was a significantly heavy tobacco user and smoked until he was in his 60s in addition to secondhand exposure at work, [employer]. Tobacco Use: Secondhand Alcohol: Occasional Drugs: None - *Family History Maternal History Items: Cancer - Maternal family history of liver cancer, passed at age 76., Diabetes, High Cholesterol, Heart Disease, Hypertension Paternal History Items: Cancer - Father passed at age 61., High Cholesterol, Heart Disease - Patient notes her father did have diphtheria when he was younger and had resulting heart disease following., Hypertension Sibling History Items: - - Patient with a sister with history of colon cancer, diagnosed in her 60s as well as a brother with pancreatic cancer diagnosed in his 70s. Review of Systems Constitutional: Reports: Fatigue. Denies: Anorexia, Chills, Fever, Malaise, Weakness, Weight Change HEENT: Denies: Head Aches, Sinus Congestion, Sinus Drainage Cardiovascular: Reports: Chest Pain. Denies: Chest Pressure, Chest Tightness, Light Headedness, Orthopnea, Palpitations, Syncope Respiratory: Reports: Shortness of Breath, Shortness of breath upon exertion. Denies: Cough, Shortness of breath at rest, Sputum production Gastrointestinal: Reports: Dyspepsia. Denies: Abdominal Pain, Nausea, Vomiting Genitourinary: Denies: Dysuria Musculoskeletal: Denies: Joint Pain, Joint Tenderness Skin: Denies: Rash, Wounds Neurological: Denies: Numbness, Tingling, Focal weakness Psychiatric: Denies: Anxiety, Depression, Homicidal Ideations, Suicidal Ideations Hematologic/ Lymphatic: Denies: Easy Bruising, Easy Bleeding VTE Information - Inpt Only VTE Present on Admission: No VTE Mechan Device Prophylaxis: SCD's VTE Pharm Prophylaxis ordered?: Yes Patient Problems: Active and Suspected Problems Chest pain (Acute) Exertional dyspnea (Acute) COPD (chronic obstructive pulmonary disease) (Suspected) Subjective: Patient seated upright in the ED bed, denies any current chest discomfort or dyspnea. Objective: Physical Examination: General: awake, alert, oriented x 3 and cooperative, seated upright in the ED bed in no apparent distress. Skin: normal color, turgor, no icterus, cyanosis. HEENT: AT/NC, EOMI, PERRLA, MMM, no carotid bruits or JVD noted. Lungs: CTA bilaterally, moderate effort, mild decrease BL bases, no rales, ronchi or wheezing. Heart: Regular rate and rhythm; no gallop, rub audible. Abdomen: soft, obese, NTTP, ND, normal BS, no HSM. Extremities: no cyanosis, clubbing, or edema. Neurological: patient awake, alert, oriented as noted; cognitive function intact; pupils equally reactive to light and accomodation; cranial nerves II-XII grossly normal, moving all 4 extremities, no focal deficits, strength preserved. Psychiatric: affect appears normal, no acute evidence of depressive or anxiety feelings. - Physical Exam Vitals/I&O's: Vital Signs Temp Pulse Resp BP Pulse Ox 97.3 F L 86 17 166/72 H 96 11/30/20 12:47 11/30/20 13:23 11/30/20 13:23 11/30/20 13:23 11/30/20 13:23 Oxygen Delivery Method Room Air Weight: 229 lb 4.492 oz Body Mass Index (BMI) 35.9 Microbiology Past 72 Hours 11/30/20 13:20 Mucosa - Nose SARS-CoV-2 Antigen (Rapid) - Final Laboratory Results 11/30/20 13:20: WBC 7.8, RBC 4.84, Hgb 13.7, Hct 41.6, MCV 86.0, MCH 28.3, MCHC 32.9, RDW Std Deviation 43.6, RDW Coeff of Holden 14.0, Plt Count 248, MPV 9.1, Immature Gran % (Auto) 0.300, Neut % (Auto) 65.6, Lymph % (Auto) 25.7, [place] % (Auto) 5.5, Eos % (Auto) 2.3, Baso % (Auto) 0.6, Absolute Neuts (auto) 5.1, Absolute Lymphs (auto) 2.01, Nucleated RBC % 0 11/30/20 13:20: Sodium 137, Potassium 3.3 L, Chloride 100, Carbon Dioxide 34.0 H, Anion Gap 3 L, BUN 12, Creatinine 0.96, Estim Creat Clear Calc 46.21, Est GFR (MDRD) Af Amer 72, Est GFR (MDRD) Non-Af 60, BUN/Creatinine Ratio 12.5, Glucose 119 H, Calcium 9.6, Troponin I < 0.015 11/30/20 13:20: B-Natriuretic Peptide 17.7 Current Medications Sodium Chloride () 1,000 mls @ 150 mls/hr IV .Q6H40M ONE Stop: 11/30/20 19:44 Last Admin: 11/30/20 13:20 Dose: 150 mls/hr Documented by: Assessment/Plan All Active Problems No significant past medical history (Acute) Chest pain (Acute) Exertional dyspnea (Acute) The patient is a 80 y/o F w/ PMHx: Obesity, HTN, HLD, GERD, Anxiety, Hx Skin CA, Allergic rhinitis, Asthma/Suspected underlying Chronic COPD (2nd hand tobacco exposure prolonged hx) who presents to the [facility] ED on 11/30/20 with history of at least 2 months of dyspnea with exertion especially when attempting to go up steps however it has been worsening over the last 2 weeks with associated decreased energy, diaphoresis, dyspnea with any attempted increased activity with episode the week prior of midsternal chest pain. 1. Chest Pain, Exertional dyspnea: EKG in ED with sinus rhythm with no acute evidence of ischemia, CXR w/ chronic COPD type changes with no acute cardiopulmonary findings otherwise, initial trop less than 0.015. Will admit to PCU, place on a monitored bed to assure no acute myocardial infarction with serial cardiac enzymes and EKGs. If repeat serial cardiac enzymes and EKGs remain unremarkable will pursue a.m. cardiac stress testing. FLP in AM. Magnesium level requested. ASA, NG, morphine. Famotidine. PRN albuterol. 2. Hypokalemia: Admission K+ 3.3, magnesium level requested, supplementation given, repeat level in AM. 3. Hypertension: Continue home regimen including indapamide with hold parameters as needed, PRN hydralazine. 4. Hyperlipidemia: Continue patient on statin therapy, FLP in AM. 5. Allergic rhinitis: We will continue patient home Janae regimen. 6. GERD: We will maintain on famotidine. 7. Chronic constipation: We will continue patient home MiraLAX daily regimen. 8. Anxiety: Patient on a regimen, encourage continued outpatient follow-up as needed. 9. Obesity: Weight loss and lifestyle changes encouraged. 10. Chronic asthma/suspected underlying chronic COPD: Chest x-ray with chronic COPD type changes with significantly heavy prolonged tobacco secondhand exposure history as well as exposure from working at [employer], as needed albuterol, if #1 with no obvious cardiac etiology did recommend patient consider outpatient pulmonary function testing. 11. DVT prophylaxis: SCDs, Lovenox. 12. CODE status: Patient IRA is her daughter Jd Maxwell who is present and living will is currently in place. Discussed CODE status at length including difference between FULL code, DNR-CCA and DNR-CC status. Following discussions about the differences in these status, requested DNR-CCA, no intubation status and daughter confirms. Advanced Care Planning Face to Face Time: 16 minutes. OBSV E&M: 21934 Initial observation care L3 Procedures: 84365 Advncd Care Plan 30 Min
--- NOTE | 2020-11-30 15:03 | EKG12_ITS ---
Test Reason : CP ADMISSION Blood Pressure : / mmHG Vent. Rate : 059 BPM Atrial Rate : 059 BPM P-R Int : 192 ms QRS Dur : 090 ms QT Int : 442 ms P-R-T Axes : 012 -37 -03 degrees QTc Int : 437 ms Sinus bradycardia Left axis deviation Abnormal ECG Confirmed by YESSY MACKAY, ALMA ROSA ([id number]), staff editor SUSY WINTER ([id number]) on 12/07/2020 11:22:44 AM Referred By: JENARO Confirmed By:ALMA ROSA KRISHNAMURTHY MD
[2020-11-30 15:19] LABS: Magnesium 1.8 mg/dL (1.6-2.6)
[2020-11-30] MEDS: Potassium Chloride Oral Tablet 20 MEQ 40 MEQ PO (18:16)
[2020-11-30] MEDS: Famotidine 20 MG Tablet PO (20:46)
[2020-11-30] MEDS: Docusate Sodium 100 MG Capsule PO (20:46)
[2020-12-01 02:30] VITALS: BP 120/68; PULSE 66; RESP 16; TEMP 36.6; O2SAT 94
[2020-12-01 03:00] VITALS: PULSE 66
--- NOTE | 2020-12-01 05:55 | EKG12_ITS ---
Test Reason : AM EKG Blood Pressure : / mmHG Vent. Rate : 067 BPM Atrial Rate : 067 BPM P-R Int : 152 ms QRS Dur : 088 ms QT Int : 438 ms P-R-T Axes : 027 -39 008 degrees QTc Int : 462 ms Normal sinus rhythm Left axis deviation Abnormal ECG When compared with ECG of 30-NOV-2020 15:49, MANUAL COMPARISON REQUIRED, DATA IS UNCONFIRMED Confirmed by VENICE MACKAY, DAVE ([id number]), sports editor SUSY WINTER ([id number]) on 12/06/2020 1:10:33 PM Referred By: DR EASON Confirmed By:DAVE MILLARD MD
[2020-12-01] MEDS: Aspirin E.C. 81 MG Tablet PO (05:57)
[2020-12-01 06:20] LABS: Absolute Lymphocyte Count 1.98 X10^3/uL (0.83-4.51); Absolute Neutrophil Count 4.8 X10^3/uL (2.0-7.7); Basophil# 0.06 X10^3/uL; Basophil% 0.8 % (0-1); Eosinophils% 2.7 % (0-5); Lymphocyte # 1.98 X10^3/ul (4.0); Lymphocyte % 26.4 % (19-41); Mean Corp Hgb Conc 31.7 g/dL (32-36); Mean Corpuscular Hgb 27.5 pg (27.0-32.0); Mean Corpuscular Volume 86.7 fL (81-99); Mean Platelet Vol. 9.4 fl (6.2-12.0); Monocyte# 0.43 X10^3/uL; Monocyte% 5.7 % (0-10); NRBC Flagged by Analyzer 0 % (0-5); Platelet Count 239 K/mm3 (150-450); RBC Distribution Width CV 13.9 % (11.6-14.6); RBC Distribution Width SD 44.4 fl (35.1-43.9); Red Blood Count 4.73 M/mm3 (4.2-5.4); White Blood Count 7.5 K/mm3 (4.4-11.0)
[2020-12-01 06:54] LABS: ALB/GLOB Ratio 0.9 RATIO (0.9-2.4); AST(SGOT) 17 U/L (15-37); Alanine Aminotransfer ALT/SGPT 21 U/L (13-56); Alkaline Phosphatase 63 U/L (45-117); Anion Gap 4 (5-15); BUN 12 mg/dL (7-18); BUN/Creat Ratio 13.1 RATIO (10-20); Calcium,Total 8.7 mg/dL (8.5-10.1); Chloride 105 mmol/L (98-107); Cholesterol 165 mg/dL (200); Creatinine, Serum 0.92 mg/dL (0.55-1.02); EST Glomerular Filtration Rate 63 mL/min (>60); Est Glom Filt Rate - Afr Amer 76 mL/min (>60); Estimated Creatinine Clearance 48.22 ml/min; Globulin 3.3 g/dL (2.2-4.2); Glucose 100 mg/dL (74-106); High Density Lipoprotein 55 mg/dL; Potassium 3.8 mmol/L (3.5-5.1); Protein, Total 6.3 g/dL (6.4-8.2); Sodium Level 140 mmol/L (136-145); Triglycerides 107 mg/dL; Very Low Density Lipoprotein 21 mg/dL (5-40)
[2020-12-01 06:59] VITALS: PULSE 78
[2020-12-01 10:11] VITALS: BP 141/83; PULSE 74; RESP 16; TEMP 36.3; O2SAT 96
[2020-12-01] MEDS: Indapamide 2.5 MG Tablet 1.25 MG PO (10:15)
[2020-12-01] MEDS: Loratadine 10 MG Tablet PO (10:18)
[2020-12-01] MEDS: Famotidine 20 MG Tablet PO (10:18)
[2020-12-01] MEDS: Docusate Sodium 100 MG Capsule PO (10:19)
[2020-12-01] MEDS: Polyethylene Glycol 3350 17 GM PACKET PO (10:19)
[2020-12-01 10:59] VITALS: PULSE 68
--- NOTE | 2020-12-01 11:12 | STRESSREP ---
Stress Test Report Date: 12-01-2020 Procedure: Pharmacologic stress nuclear imaging study Indications: Pain Consent: Per the patient Procedure: The patient underwent pharmacologic (Regadenoson 0.4mg ) evaluation with a peak heart rate of 98 beats per minute (69%predicted maximal heart rate) and a peak blood pressure of 138/80 mmHg. The baseline ECG demonstrated sinus rhythm. The peak pharmacologic ECG demonstrated no obvious ECG changes. There were no cardiac dysrhythmias pretest, during pharmacologic infusion, or recovery. There was no complaint of chest discomfort during pharmacologic infusion or recovery. The examination was discontinued secondary to completion of protocol. Impression: 1. Pharmacologic (Regadenoson) evaluation 2. Peak pharmacologic ECG with no obvious ECG changes. 3. There were no cardiac dysrhythmias pretest, during pharmacologic infusion, or recovery. 4. Nuclear images pending Myocardial perfusion imaging study: Technique: The patient was injected with 13.7 millicuries of technetium 99m Cardiolite and subsequently rest SPECT Cardiolite nuclear imaging was obtained in the horizontal long, vertical long, and short axis views. The patient underwent pharmacologic (Regadenoson) evaluation with a peak heart rate of 98 beats per minute (69% percent predicted maximal heart rate) and a peak blood pressure of 138/80 mmHg. The patient was injected with 44.1 millicuries of technetium 99m Cardiolite and subsequently stress SPECT Cardiolite nuclear imaging was obtained in the horizontal long, vertical long, and short axis views. A gated Cardiolite study at peak stress was obtained. Interpretation: Rest and stress SPECT Cardiolite nuclear imaging status post realignment, normalization, and attenuation correction demonstrate relative uniform tracer uptake and myocardial perfusion appearing within normal limits. There is end systolic thickening and brightening. The gated Cardiolite study demonstrates myocardial thickening and inward wall motion. The reported LVEF is 85%. Impression: 1. Rest and stress SPECT Cardiolite nuclear imaging demonstrate relative uniform tracer uptake and myocardial perfusion appearing within normal limits. 2. The gated Cardiolite study reports an LVEF of 85%. This note was generated with [employer] software. It may contain incorrect words, spelling, and punctuation that were not noted in checking the note before signing.
--- NOTE | 2020-12-01 12:28 | DCINST_ITS ---
- Discharge Diagnoses Current Active Problems: Current Active and Chronic Problems Chest pain (Acute) Exertional dyspnea (Acute) Asthma (Chronic) Secondhand smoke exposure (Chronic) Allergic rhinitis (Chronic) Hypertension (Chronic) Hyperlipidemia (Chronic) Obesity (BMI 30-39.9) (Chronic) You will use the following diet at home:: Cardiac Your food should be the consistency of: Regular Your liquids should be the consistency of: Regular/Thin Discharge Activity: Return to Normal Activity Weight Bearing Status: Weight bearing as tolerated Call your doctor if you observe: Fever of 101 or Higher, Shortness of breath, Dizziness, Chest pain Instructions: ED Chest Pain, Noncardiac Allergies/Adverse Reactions: Allergies Iodinated Contrast Media [CONTRASTS] Allergy (Verified 11/30/20 15:35) hypertension/severe pain nitrofurantoin [From Macrodantin] Allergy (Verified 11/30/20 12:47) Hives Penicillins Allergy (Verified 11/30/20 12:47) Unknown perflutren [From Definity] Allergy (Verified 11/30/20 15:35) increased BP/severe pain was told never to take again Medications to take at Discharge Indapamide 1.25 mg PO DAILY 08/16/19 Fexofenadine HCl 180 mg PO DAILY 11/30/20 Polyethylene Glycol 3350 [Miralax] 17 gm PO DAILY 11/30/20 Rosuvastatin Calcium 5 mg PO DAILY 11/30/20 Primary Care Physician: Tony Gonzáles MD [Primary Care Provider] - Please follow up with your Primary Care Physician in: 1-2 weeks Test Results: Test results from this visit will be discussed in further detail at your follow- up appointment, if applicable. Proposed Discharge Date: 12/01/20
--- NOTE | 2020-12-01 12:30 | PCM.DC.SUM ---
Discharge Date and Diagnosis - Problem List Patient Problems: Active and Suspected Problems Chest pain (Acute) Exertional dyspnea (Acute) COPD (chronic obstructive pulmonary disease) (Suspected) Date of Admission: 11/30/20 Date of Discharge: 12/01/20 - Primary Discharge Diagnosis Acute Problems: Active Problems Chest pain (Acute) Exertional dyspnea (Acute) Suspected Problems: Suspected Problems COPD (chronic obstructive pulmonary disease) (Suspected) - Secondary Discharge Diagnosis Chronic Problems: Chronic Problems Asthma (Chronic) Secondhand smoke exposure (Chronic) Allergic rhinitis (Chronic) Hypertension (Chronic) Hyperlipidemia (Chronic) Obesity (BMI 30-39.9) (Chronic) Hospital Course and Treatment Imaging Results: 12/01/20 07:39 Nuclear Stress Test - Chemical [NM] Routine Operations: None Procedures: Stress test Summary of Care Provided: The patient is a 80 year old F who was admitted with a complaint of chest pain. She had associated shortness of breath with exertion. Troponins x3 were negative and EKG showed no acute ST changes. Chest x-ray showed coarse lung markings with evidence of COPD. She was admitted and managed for chest pain rule out ACS. She had a stress test on 12/01/2020 which was negative for any evidence of ischemia. Did appear that his symptoms were more due to reflux as patient said he felt like it was a burning sensation that was refluxing from his stomach into her chest and was helped by her taking an antacid. Patient was discharged on 12/01/2020. She is to follow-up with her primary care doctor within 1 week. Patient says she was taking an over the counter antacid at home so she was counseled to continue with this. Patient seen and examined prior to discharge. She had no complaints. Review systems otherwise negative. Labs and vitals reviewed. Home medication reviewed and reconciled. Patient Problems: Active and Suspected Problems Chest pain (Acute) Exertional dyspnea (Acute) COPD (chronic obstructive pulmonary disease) (Suspected) - Physical Exam Vitals/I&O's: Vital Signs Temp Pulse Resp BP Pulse Ox 97.4 F L 68 16 141/83 H 96 12/01/20 10:11 12/01/20 10:59 12/01/20 10:11 12/01/20 10:11 12/01/20 10:11 Oxygen Delivery Method Room Air Weight: 228 lb 6.382 oz Body Mass Index (BMI) 35.6 Intake and Output for Last 24 Hours 11/29/20 11/30/20 12/01/20 23:59 23:59 23:59 Intake Total 1000 / 1200 200 / 200 Balance 1000 / 1200 200 / 200 General: Alert, Oriented x3, Cooperative HEENT: Atraumatic, PERRLA, EOMI, Normocephalic Oral: Moist Mucosa Neck: Supple, No JVD, Negative Carotid Bruits Lungs: Clear to auscultation, Normal air movement Cardiovascular: Regular rate, No murmurs Abdomen: Bowel Sounds Present, Soft, Non Tender Extremities: No edema, Capillary Refill Less than 3 Seconds Skin: No rashes, No breakdown Musculoskeletal: No Tenderness to Palpation of Joints or Extremities Neurological: Cranial nerves II-XII grossly intact, Neuro grossly intact, Motor Exam 5/5 strength throughout Psych/Mental Status: Normal Affect, Appropriate, Alert and oriented to time, place, person, mood and affect Microbiology Past 72 Hours 11/30/20 13:20 Mucosa - Nose SARS-CoV-2 Antigen (Rapid) - Final Laboratory Results 11/30/20 13:20: WBC 7.8, RBC 4.84, Hgb 13.7, Hct 41.6, MCV 86.0, MCH 28.3, MCHC 32.9, RDW Std Deviation 43.6, RDW Coeff of [place] 14.0, Plt Count 248, MPV 9.1, Immature Gran % (Auto) 0.300, Neut % (Auto) 65.6, Lymph % (Auto) 25.7, [place] % (Auto) 5.5, Eos % (Auto) 2.3, Baso % (Auto) 0.6, Absolute Neuts (auto) 5.1, Absolute Lymphs (auto) 2.01, Nucleated RBC % 0 11/30/20 13:20: Sodium 137, Potassium 3.3 L, Chloride 100, Carbon Dioxide 34.0 H, Anion Gap 3 L, BUN 12, Creatinine 0.96, Estim Creat Clear Calc 46.21, Est GFR (MDRD) Af Amer 72, Est GFR (MDRD) Non-Af 60, BUN/Creatinine Ratio 12.5, Glucose 119 H, Calcium 9.6, Troponin I < 0.015 11/30/20 13:20: B-Natriuretic Peptide 17.7 11/30/20 13:20: Magnesium 1.8 11/30/20 15:33: Troponin I < 0.015 11/30/20 19:50: Troponin I < 0.015 12/01/20 05:00: WBC 7.5, RBC 4.73, Hgb 13.0, Hct 41.0, MCV 86.7, MCH 27.5, MCHC 31.7 L, RDW Std Deviation 44.4 H, RDW Coeff of [place] 13.9, Plt Count 239, MPV 9.4, Immature Gran % (Auto) 0.400, Neut % (Auto) 64.0, Lymph % (Auto) 26.4, [place] % (Auto) 5.7, Eos % (Auto) 2.7, Baso % (Auto) 0.8, Absolute Neuts (auto) 4.8, Absolute Lymphs (auto) 1.98, Nucleated RBC % 0 12/01/20 05:00: Sodium 140, Potassium 3.8, Chloride 105, Carbon Dioxide 31.0, Anion Gap 4 L, BUN 12, Creatinine 0.92, Estim Creat Clear Calc 48.22, Est GFR (MDRD) Af Amer 76, Est GFR (MDRD) Non-Af 63, BUN/Creatinine Ratio 13.1, Glucose 100, Calcium 8.7, Total Bilirubin 0.50, AST 17, ALT 21, Alkaline Phosphatase 63, Total Protein 6.3 L, Albumin 3.0 L, Globulin 3.3, Albumin/Globulin Ratio 0.9, Triglycerides 107, Cholesterol 165, LDL Cholesterol 89, VLDL Cholesterol 21, HDL Cholesterol 55 Diagnostic Data Chest X-Ray 11/30/20 13:30 IMPRESSION: No focal patchy airspace opacities or effusions COPD/coarse lung markings Electronically Signed: Jamison Thomson DO at 13:44 EDT Tel , Service support , Current Medications Acetaminophen (Acetaminophen 325 Mg Tablet) 650 mg PO Q6H PRN PRN PRN Reason: Pain Score 1-10/Temp > 100.7 F Al Hydroxide/Mg Hydroxide (Mag Hydrox/Al Hydrox/Simeth 30 Ml Udc) 30 ml PO Q6H PRN PRN PRN Reason: Gastric Burning Albuterol Sulfate (Albuterol 2.5 Mg/3 Ml Vial.Neb.) 2.5 mg INHALATION Q2H PRN PRN PRN Reason: Dyspnea, wheezing Aspirin (Aspirin E.C. 81 Mg Tablet) 81 mg PO DAILY@0800 [facility] Last Admin: 12/01/20 05:57 Dose: 81 mg Documented by: Atorvastatin Calcium (Atorvastatin Calcium 10 Mg Tablet) 10 mg PO QHS [facility] Last Admin: 11/30/20 20:45 Dose: Not Given Documented by: Docusate Sodium (Docusate Sodium 100 Mg Capsule) 100 mg PO BID [facility] Last Admin: 12/01/20 10:19 Dose: 100 mg Documented by: Enoxaparin Sodium (Enoxaparin 40 Mg/0.4 Ml Syringe) 40 mg SC DAILY [facility] Famotidine (Famotidine 20 Mg Tablet) 20 mg PO BID [facility] Last Admin: 12/01/20 10:18 Dose: 20 mg Documented by: Guaifenesin (Guaifenesin 10 Ml Udc (200mg/10ml)) 20 ml PO Q4H PRN PRN PRN Reason: COUGH Hydralazine HCl (Hydralazine 20 Mg/Ml Vial) 10 mg IV Q4H PRN PRN PRN Reason: SBP > 160 Indapamide (Indapamide 2.5 Mg Tablet) 1.25 mg PO DAILY [facility] Last Admin: 12/01/20 10:15 Dose: 1.25 mg Documented by: Loratadine (Loratadine 10 Mg Tablet) 10 mg PO DAILY [facility] Last Admin: 12/01/20 10:18 Dose: 10 mg Documented by: Magnesium Hydroxide (Magnesium Hydroxide 30 Ml Udc) 30 ml PO DAILY PRN PRN PRN Reason: Constipation Melatonin (Melatonin 3 Mg Tablet) 3 mg PO QHS PRN PRN PRN Reason: INSOMNIA Morphine Sulfate (Morphine 2 Mg/Ml Syringe) 2 mg IV Q3H PRN PRN PRN Reason: Pain Score 6-10 Nitroglycerin (Nitroglycerin (Inpatient Use) 0.4 Mg Tab.Subl) 0.4 mg SL Q5M PRN PRN Reason: CARDIAC/CHEST PAIN Ondansetron HCl (Ondansetron 4 Mg/2 Ml Vial) 4 mg IV Q8H PRN PRN PRN Reason: NAUSEA/VOMITING Oxycodone HCl (Oxycodone 5 Mg Tablet) 5 mg PO Q4H PRN PRN PRN Reason: Pain Score 4-5 Polyethylene Glycol (Polyethylene Glycol 3350 17 Gm Packet) 17 gm PO DAILY [facility] Last Admin: 12/01/20 10:19 Dose: 17 gm Documented by: Prochlorperazine Edisylate (Prochlorperazine 10 Mg/2 Ml Vial) 5 mg IV Q4H PRN PRN PRN Reason: Breakthrough Nausea/Vomiting Psyllium Hydrophilic Mucilloid (Psyllium 1 Packet) 1 packet PO DAILY PRN PRN PRN Reason: Constipation Senna/Docusate Sodium (Senna/Docusate Sodium 1 Tablet) 2 tablet PO BID PRN PRN PRN Reason: Constipation Sodium Chloride (0.9% Saline Lock 10 Ml Syringe) 10 - 40 ml IV UD PRN PRN Reason: SALINE FLUSH Throat Lozenges (Benzocaine/Menthol 1 Lozenge) 1 lozenge MUCOUS MEM Q2H PRN PRN PRN Reason: SORE THROAT Discharge Diet: Low fat/ Low Cholesterol Discharge Activity: Return to Normal Activity Weight Bearing Status: Weight bearing as tolerated Call your doctor if you observe: Fever of 101 or Higher, Shortness of breath, Dizziness, Chest pain Home Medications: Medications to take at Discharge Indapamide 1.25 mg PO DAILY 08/16/19 Fexofenadine HCl 180 mg PO DAILY 11/30/20 Polyethylene Glycol 3350 [Miralax] 17 gm PO DAILY 11/30/20 Rosuvastatin Calcium 5 mg PO DAILY 11/30/20 Primary Care Physician: Tony Gonzáles MD [Primary Care Provider] - Please follow up with your Primary Care Physician in: 1-2 weeks Patient Instructions: ED Chest Pain, Noncardiac Disposition: Home Minutes spent on discharge:: 35 Patient Condition:: Stable Medical Necessity - Tobacco Use Smoking Status: Never smoker Tobacco Use: Secondhand Meaningful Use Info Meaningful Use Diagnoses (Choose all that apply): None applicable OBSV E&M: 26773 Observation care discharge
[2020-12-01 12:53] VITALS: BP 157/88; PULSE 74; RESP 16; O2SAT 93
== END 2020-12-01 11:57 | disposition home or self-care (01) ==
LOC: ED 13:11 → PCU 14:19
PROVIDERS: Admitting Provider Family Medicine; Emergency Provider Emergency Medicine; PCP Family Medicine; Visit Provider Student in an Organized Health Care Education/Training Program
DX: R07.89 Other chest pain (principal); R06.02 Shortness of breath; R06.09 Other forms of dyspnea; J45.909 Unspecified asthma, uncomplicated; E78.5 Hyperlipidemia, unspecified; I10 Essential (primary) hypertension; E66.9 Obesity, unspecified; K21.9 Gastro-esophageal reflux disease without esophagitis; E87.6 Hypokalemia; K59.09 Other constipation; F41.9 Anxiety disorder, unspecified; Z77.22 Contact with and (suspected) exposure to environmental tobacco smoke (acute) (chronic); Z68.35 Body mass index [BMI] 35.0-35.9, adult; Z79.899 Other long term (current) drug therapy
CPT/HCPCS: 36415; 71045; 78452; 80048; 80053; 80061; 83735; 83880; 84484; 85025; 87426; 93005; 93017; 96360; 96361; 99218; 99251; 99285; A9500; J7030; A4216; G0378; G0463; J2785

== ENCOUNTER → 2021-04-25 07:47 | Outpatient (CLI) | payer MEDICARE, OTHER, SELFPAY ==
--- NOTE | 2021-04-25 07:58 | US_ITS ---
INDICATION: UTI EXAMINATION: Ultrasound US Kidney(s) complete (eg, kidneys and bladder) TECHNIQUE: Turner scale and color doppler images were obtained of the kidneys. COMPARISON: 07/14/2020.. FINDINGS: RIGHT KIDNEY: The right kidney demonstrates unremarkable echogenicity and unremarkable vascularity. Unremarkable size shape and configuration is no evidence of masses or stones. No evidence of hydronephrosis is seen. The right renal cortex measures 1.5 cm. The right kidney measures 12.2 x 5.1 x 4.4 cm. LEFT KIDNEY: The left kidney demonstrates unremarkable echogenicity and unremarkable vascularity. A simple cyst is visualized in the upper pole of the left kidney measuring 1.5 x 1.4 x 1.0 cm. Unremarkable size, shape and configuration is no evidence of masses or stones. No evidence of hydronephrosis is seen. The left renal cortex measures 2.1 cm. The left kidney measures 12.3 x 5.9 x 5.0 cm. The urinary bladder demonstrates unremarkable intestinal anechoic and echogenicity, no evidence of stones or masses within the urinary bladder. The wall of the urinary bladder is unremarkable measuring 0.4 cm. The urinary bladder measures 5.8 x 6.3 x 9.4 cm with a volume of 180.51 mL No evidence of free fluid. US/Kidney and Bladder IMPRESSION: 1.5 cm simple cysts visualized in the upper pole of the left kidney otherwise unremarkable ultrasound of the kidneys and bladder. Electronically Signed: Juan Antonio Cheema MD at 11:17 EDT Tel , Service support ,
== END ==
PROVIDERS: PCP Family Medicine; Referring Provider Urology; Visit Provider Urology
DX: N39.0 Urinary tract infection, site not specified (principal)
CPT/HCPCS: 76770

== ENCOUNTER → 2021-05-14 14:56 | Outpatient (CLI) | payer MEDICARE, OTHER, SELFPAY ==
--- NOTE | 2021-05-14 14:57 | MRI_ITS ---
MR Pelvis Female WO/W Contrast 05/14/2021 3:18 PM COMPARISON: None CLINICAL HISTORY: URETHRAL DIVERTICULUM , RECURRENT BLADDER INFECTIONS, PREV HYSTERECTOMY TECHNIQUE: Multiplanar T1 and T2 weighted and post-gadolinium images were obtained through the pelvis. FINDINGS: Bladder: Unremarkable Reproductive organs: Status post hysterectomy. Lymphadenopathy: Absent Ascites: Absent Bones: No suspicious lesions MRI/Pelvis W/WO Contrast IMPRESSION: Normal MRI of the pelvis. Electronically Signed: Ryan Cornell MD at 17:33 EDT Tel , Service support ,
== END ==
PROVIDERS: PCP Family Medicine; Visit Provider Urology
DX: N36.1 Urethral diverticulum (principal)
CPT/HCPCS: 72197; A9575